=== PATIENT | female | born 1980 | race Caucasian/White ===

== ENCOUNTER 2016-12-07 09:11 | Emergency (ER) | payer MEDICAID ==
[2016-12-07 09:21] VITALS: BP 119/82
--- NOTE | 2016-12-07 10:07 | ER Document Report ---
HPI - HPI Patient complains to provider of: left ear pain Onset: Other - 4 days Onset/Duration: Gradual Quality of pain: Achy Pain Level: 4 Context: Patient complains of left ear pain for the past 4 days with a decrease in hearing today. Patient denies any fever or drainage from the ear. Associated Symptoms: Earache Exacerbated by: Denies Relieved by: Denies Similar symptoms previously: Yes Recently seen / treated by doctor: No - ROS ROS below otherwise negative: Yes Systems Reviewed and Negative: Yes All other systems reviewed and negative - CONSTITUTIONAL Constitutional: DENIES: Fever, Chills - EENT EENT: REPORTS: Ear Pain - RESPIRATORY Respiratory: DENIES: Coughing - GASTROINTESTINAL Gastrointestinal: DENIES: Nausea, Patient vomiting - REPRODUCTIVE Reproductive: DENIES: : - DERM Skin Color: Normal Skin Problems: None Past Medical History - General Information source: Patient - Social History Smoking Status: Current Every Day Smoker Chew tobacco use (# tins/day): No Frequency of alcohol use: None Drug Abuse: None Occupation: none Family History: None Patient has suicidal ideation: No Patient has homicidal ideation: No - Past Medical History Cardiac Medical History: Reports: Hx Hypercholesterolemia Renal/ Medical History: Denies: Hx Peritoneal Dialysis Musculoskeltal Medical History: Reports Other - Chronic back pain Past Surgical History: Reports: Hx Breast Surgery - lumpectomy, Hx Section, Hx Cholecystectomy, Hx Hysterectomy, Hx Orthopedic Surgery, Hx Tonsillectomy - Immunizations Hx Diphtheria, Pertussis, Tetanus Vaccination: Yes Vertical Provider Document - CONSTITUTIONAL Agree With Documented VS: Yes Exam Limitations: No Limitations General Appearance: WD/WN, No Apparent Distress - INFECTION CONTROL TRAVEL OUTSIDE OF THE [place] IN LAST 30 DAYS: No - HEENT HEENT: Atraumatic, Normocephalic. negative: Pharyngeal Exudate, Pharyngeal Tenderness, Pharyngeal Erythema, Tympanic Membrane Red, Tympanic Membrane Bulging Notes: Swelling to left external auditory canal. Pain with movement of left helix. No mastoid tenderness or swelling - NECK Neck: Normal Inspection, Supple. negative: Lymphadenopathy-Left, Lymphadenopathy-Right - RESPIRATORY Respiratory: Breath Sounds Normal, No Respiratory Distress O2 Sat by Pulse Oximetry: 99 - CARDIOVASCULAR Cardiovascular: Regular Rate, Regular Rhythm - BACK Back: Normal Inspection - MUSCULOSKELETAL/EXTREMETIES Musculoskeletal/Extremeties: MAEW - NEURO Level of Consciousness: Awake, Alert, Appropriate Motor/Sensory: No Motor Deficit - DERM Integumentary: Warm, Dry, No Rash Course - Vital Signs Vital signs: Temp Pulse Resp BP Pulse Ox 98.1 F 79 16 119/82 99 12/07/16 09:20 12/07/16 09:20 12/07/16 09:20 12/07/16 09:20 12/07/16 09:20 Discharge - Discharge Clinical Impression: Otitis externa Qualifiers: Otitis externa type: unspecified type Laterality: left Chronicity: acute Qualified Code(s): H60.502 - Unspecified acute noninfective otitis externa, left ear Condition: Stable Disposition: HOME, SELF-CARE Instructions: Oral Narcotic Medication ([facility]), Use of Ear Drops ([facility]), Otitis Externa ([facility]) Additional Instructions: Return immediately for any new or worsening symptoms Followup with your primary care provider, call tomorrow to make a followup appointment Follow up with ears nose and throat specialist or any continued problems Prescriptions: Ciprofloxacin HCl/Dexameth [Ciprodex Otic Suspension 7.5 Ml Drp Bottle] 4 drop LFT_EAR BID #1 bottle Hydrocodone/Acetaminophen [Sidney 5-325 Tablet] 1 each PO Q4 PRN #15 tablet PRN Reason: Referrals: ENT [Provider Group] - Follow up as needed
== END 2016-12-07 10:10 | disposition home or self-care (01) ==
LOC: ER 09:11
DX: H60.502 Unspecified acute noninfective otitis externa, left ear (principal); F17.200 Nicotine dependence, unspecified, uncomplicated; E78.00 Pure hypercholesterolemia, unspecified; Z90.710 Acquired absence of both cervix and uterus
CPT/HCPCS: 99282

== ENCOUNTER 2017-05-25 11:05 | Emergency (ER) | payer MEDICAID ==
[2017-05-25 11:14] VITALS: BP 114/72
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
--- NOTE | 2017-05-25 13:18 | RADIOLOGY REPORT (SQ) ---
EXAM DESCRIPTION: L SPINE WHOLE COMPLETED DATE/TIME: 05/25/2017 12:58 pm REASON FOR STUDY: Low back pain, left posterior hip pain COMPARISON: None. NUMBER OF VIEWS: Five views including obliques. TECHNIQUE: AP, lateral, oblique, and sacral radiographic images acquired of the lumbar spine. LIMITATIONS: None. FINDINGS: MINERALIZATION: Normal. SEGMENTATION: Normal. No transitional anatomy. ALIGNMENT: Normal. VERTEBRAE: Maintained height. No fracture or worrisome bone lesion. DISCS: Disc space narrowing L5-S1. POSTERIOR ELEMENTS: Pedicles and facets are intact. No pars defect or posterior arch defects. HARDWARE: None in the spine. PARASPINAL SOFT TISSUES: Normal. PELVIS: Intact as visualized. No fractures or worrisome bone lesions. SI joints intact. OTHER: No other significant finding. IMPRESSION: Disc space narrowing L5-S1. TECHNICAL DOCUMENTATION: JOB ID: [id number] [employer]- All Rights Reserved
--- NOTE | 2017-05-25 13:20 | RADIOLOGY REPORT (SQ) ---
EXAM DESCRIPTION: HIP LEFT AP/LATERAL COMPLETED DATE/TIME: 05/25/2017 12:59 pm REASON FOR STUDY: Low back pain, left posterior hip pain COMPARISON: None. NUMBER OF VIEWS: Two views. TECHNIQUE: AP pelvis and additional frog-leg view of the left hip. LIMITATIONS: None. FINDINGS: MINERALIZATION: Normal. LEFT HIP: No acute fracture. Osteophytes. RIGHT HIP: Small osteophytes. No acute fracture. No joint space narrowing. PUBIS AND ISCHIUM: No fracture. PELVIS: No fracture. SACRUM: No fracture or dislocation. No worrisome bone lesions. LOWER LUMBAR SPINE: No fracture or dislocation. No worrisome bone lesions. No significant disc disea se. SOFT TISSUES: No findings. OTHER: No other significant finding. IMPRESSION: Mild degenerative changes of the left hip. Moderate degenerative changes of the right h ip. TECHNICAL DOCUMENTATION: JOB ID: [id number] [employer]- All Rights Reserved
[2017-05-25] MEDS ORDERED: KETOROLAC TROMETHAMINE INJ/PF 30 MG/1 ML SDV IM ONE (13:40)
== END 2017-05-25 13:50 | disposition home or self-care (01) ==
LOC: ER 11:05
DX: T14.8 Other injury of unspecified body region (principal); M54.5 Low back pain; M25.552 Pain in left hip; W17.89XA Other fall from one level to another, initial encounter; Y93.18 Activity, surfing, windsurfing and boogie boarding; Z87.81 Personal history of (healed) traumatic fracture; F17.200 Nicotine dependence, unspecified, uncomplicated
CPT/HCPCS: 72110; 99283

== ENCOUNTER 2017-08-18 12:45 | Emergency (ER) | payer MEDICAID ==
--- NOTE | 2017-08-18 14:07 | ER Document Report ---
HPI - HPI Patient complains to provider of: dental pain Onset: Yesterday Onset/Duration: Gradual Quality of pain: Achy Pain Level: 5 Context: Patient presents complaining of dental pain to left lower jaw. Patient states that pain radiates to left lateral side of neck and she has tender swollen lymph nodes there. Patient reports fever of 101.7 at home. Associated Symptoms: Fever, Other - Dental pain. denies: Nonproductive cough, Productive cough, Nausea, Vomiting, Rhinnorhea Exacerbated by: Denies Relieved by: Denies Similar symptoms previously: Yes Recently seen / treated by doctor: No - ROS ROS below otherwise negative: Yes Systems Reviewed and Negative: Yes All other systems reviewed and negative - CONSTITUTIONAL Constitutional: REPORTS: Fever - EENT EENT: DENIES: Sore Throat Notes: Dental pain - NEURO Neurology: DENIES: Headache - RESPIRATORY Respiratory: DENIES: Coughing - GASTROINTESTINAL Gastrointestinal: DENIES: Nausea, Patient vomiting - REPRODUCTIVE Reproductive: DENIES: : - MUSCULOSKELETAL Musculoskeletal: REPORTS: Neck Pain. DENIES: Back Pain - DERM Skin Color: Normal Skin Problems: None Past Medical History - General Information source: Patient - Social History Smoking Status: Current Every Day Smoker Frequency of alcohol use: None Drug Abuse: None Occupation: None Lives with: Alone Family History: None - Past Medical History Cardiac Medical History: Reports: Hx Hypercholesterolemia Renal/ Medical History: Denies: Hx Peritoneal Dialysis Past Surgical History: Reports: Hx Breast Surgery - lumpectomy, Hx Section, Hx Cholecystectomy, Hx Hysterectomy, Hx Orthopedic Surgery, Hx Tonsillectomy - Immunizations Hx Diphtheria, Pertussis, Tetanus Vaccination: Yes Vertical Provider Document - CONSTITUTIONAL Agree With Documented VS: Yes Exam Limitations: No Limitations General Appearance: WD/WN, No Apparent Distress - INFECTION CONTROL TRAVEL OUTSIDE OF THE [place] IN LAST 30 DAYS: No - HEENT HEENT: Atraumatic, Normocephalic. negative: Pharyngeal Exudate, Pharyngeal Tenderness, Pharyngeal Erythema, Tympanic Membrane Red, Tympanic Membrane Bulging Mouth Diagram: 1 - dental pain - NECK Neck: Lymphadenopathy-Left, Lymphadenopathy-Right - RESPIRATORY Respiratory: Breath Sounds Normal, No Respiratory Distress O2 Sat by Pulse Oximetry: 100 - CARDIOVASCULAR Cardiovascular: Regular Rate, Regular Rhythm, No Murmur - MUSCULOSKELETAL/EXTREMETIES Musculoskeletal/Extremeties: MAEW - NEURO Level of Consciousness: Awake, Alert, Appropriate Motor/Sensory: No Motor Deficit - DERM Integumentary: Warm, Dry, No Rash Course - Vital Signs Vital signs: Temp Pulse Resp BP Pulse Ox 98.4 F 81 18 120/78 100 08/18/17 12:59 08/18/17 12:59 08/18/17 12:59 08/18/17 12:59 08/18/17 12:59 Discharge - Discharge Clinical Impression: Toothache Condition: Stable Disposition: HOME, SELF-CARE Instructions: Clindamycin ([facility]), Toothache ([facility]) Additional Instructions: Return immediately for any new or worsening symptoms Followup with your dental care provider, call tomorrow to make a followup appointment Prescriptions: Clindamycin HCl [Cleocin 300 mg Capsule] 300 mg PO TID #21 capsule Naproxen [Naprosyn 250 Nmg Tablet] 1 tab PO BID #14 tablet Referrals: [facility] [Provider Group] - Follow up as needed
[2017-08-18 14:12] VITALS: BP 120/75
== END 2017-08-18 14:12 | disposition home or self-care (01) ==
LOC: ER 12:45
DX: K08.89 Other specified disorders of teeth and supporting structures (principal); R50.9 Fever, unspecified; F17.200 Nicotine dependence, unspecified, uncomplicated
CPT/HCPCS: 99282

== ENCOUNTER 2017-08-19 20:37 | Emergency (ER) | payer MEDICAID ==
[2017-08-19] MEDS ORDERED: DIPH/PERTUSS(ACELL)/TETANUS VAC/PF 0.5 ML SYR (>=10YO) IM ONE (23:03)
[2017-08-19] MEDS ORDERED: LIDOCAINE 1% INJ-PF (10 MG/ML) 30 ML SDV INJ ONE (23:03)
--- NOTE | 2017-08-20 00:21 | ER Document Report ---
HPI - HPI Patient complains to provider of: Toe laceration Onset: This evening Onset/Duration: Sudden Quality of pain: Sharp Pain Level: 5 Context: Patient states that she stepped on a curtain ivon cutting her left fourth toe. Patient complains of pain with ambulation. Associated Symptoms: Other - Toe laceration Exacerbated by: Standing, Movement, Walking Relieved by: Denies Similar symptoms previously: No Recently seen / treated by doctor: Yes - ROS ROS below otherwise negative: Yes Systems Reviewed and Negative: Yes All other systems reviewed and negative - CONSTITUTIONAL Constitutional: DENIES: Fever - REPRODUCTIVE Reproductive: DENIES: : - MUSCULOSKELETAL Musculoskeletal: REPORTS: Extremity pain - DERM Skin Color: Normal Skin Problems: Laceration Past Medical History - General Information source: Patient - Social History Smoking Status: Current Every Day Smoker Occupation: None Lives with: Alone Family History: None Patient has suicidal ideation: No Patient has homicidal ideation: No - Past Medical History Cardiac Medical History: Reports: Hx Hypercholesterolemia Renal/ Medical History: Denies: Hx Peritoneal Dialysis Past Surgical History: Reports: Hx Breast Surgery - lumpectomy, Hx Section, Hx Cholecystectomy, Hx Hysterectomy, Hx Orthopedic Surgery, Hx Tonsillectomy - Immunizations Hx Diphtheria, Pertussis, Tetanus Vaccination: Yes Vertical Provider Document - CONSTITUTIONAL Agree With Documented VS: Yes Exam Limitations: No Limitations General Appearance: WD/WN, No Apparent Distress - INFECTION CONTROL TRAVEL OUTSIDE OF THE [place] IN LAST 30 DAYS: No - HEENT HEENT: Atraumatic, Normocephalic - NECK Neck: Normal Inspection - RESPIRATORY Respiratory: Breath Sounds Normal, No Respiratory Distress O2 Sat by Pulse Oximetry: 100 - CARDIOVASCULAR Cardiovascular: Regular Rate, Regular Rhythm Pulses: Normal: Dorsalis pedis - MUSCULOSKELETAL/EXTREMETIES Musculoskeletal/Extremeties: MAEW, FROM, Tender - left 4th toe - NEURO Level of Consciousness: Awake, Alert, Appropriate Motor/Sensory: No Motor Deficit - DERM Integumentary: Warm, Dry, Laceration - irreg lac to plantar surface of left 4th toe Course - Vital Signs Vital signs: Temp Pulse Resp BP Pulse Ox 98.4 F 99 18 123/80 100 08/19/17 20:47 08/19/17 20:47 08/19/17 20:47 08/19/17 20:47 08/19/17 20:47 Procedures - Immobilization Left Toe 4th digit Pre-Proc Neuro Vasc Exam: Normal Immobilizer type: Post-op shoe Performed by: PCT Post-Proc Neuro Vasc Exam: Normal Alignment checked and good: Yes - Laceration/Wound Repair Left Toe 4th digit Wound length (cm): 1.5 Wound's Depth, Shape: Irregular Anesthetic type: 1% Lidocaine Wound explored: Clean Wound Repaired With: Sutures Suture Size/Type: 5:0, Nylon Number of Sutures: 3 Post-procedure wound care: Sterile dressing applied, Splint applied Post-procedure NV exam normal: Yes Complications: No Discharge - Discharge Clinical Impression: Toe laceration Qualifiers: Encounter type: initial encounter Toe: lesser toe Damage to nail status: without damage Foreign body presence: without foreign body Laterality: left Qualified Code(s): S91.115A - Laceration without foreign body of left lesser toe (s) without damage to nail, initial encounter Condition: Stable Disposition: HOME, SELF-CARE Additional Instructions: Return immediately for any new or worsening symptoms Followup with your primary care provider, call tomorrow to make a followup appointment Suture removal in 8-9 days Keep wound covered as it continues to heal LACERATION CARE: Your laceration has been sutured to keep the skin edges aligned during healing. The time of suture removal depends on the nature and location of your cut. Please follow the care instructions the doctor has outlined for you and return for further care, according to the schedule you've been given. Keep the wound and dressing clean. Unless you were told otherwise, you may shower daily, blotting the wound dry with a clean, unused towel. At other times, If the dressing gets wet or blood soaked, remove it and blot the wound dry, then reapply a new dressing. Unless you were instructed otherwise, dressings should be changed at least daily. If any signs of infection occur (swelling, redness, drainage, increasing tenderness, red streaks, tender lumps in the armpit or groin above the laceration, or fever), see the doctor immediately. SOAP CLEANSING: Gently wash the wound daily using a mild soap (like Ivory, Phisoderm, Neutrogena). Use warm water, rubbing gently until all debris, ooze, and crusting have been washed from the wound. Allow to dry briefly (about 10 minutes) after cleaning. Repeat this cleansing at least three times a day for the first two days and then once or twice a day. TETANUS IMMUNIZATION GIVEN: You have been given an immunization against tetanus. Please record this in your records. In general, a booster is needed only once every 10 years. The tetanus shot protects against tetanus or "lockjaw," which is a complication of certain wound infections (the tetanus shot cannot protect against the actual infection). The immunization site may become warm and red due to local reaction. If this occurs, apply warm compresses and take aspirin or ibuprofen to reduce inflammation and discomfort. Return for evaluation if the reaction becomes severe. FOLLOW-UP CARE: Your sutures should be removed in _8-9____ days. To facilitate a timely removal of your sutures, you may return to the Emergency Department at [facility]. You do not need to call for an appointment, but the best time to come in for suture removal is early in the morning. If you have been referred to another physician for follow-up care, call that physicians office for an appointment as you were instructed. If you experience a significant change in your laceration, or if you are concerned there may be an infection (swelling, redness, drainage, increasing tenderness, red streaks, tender lumps in the armpit or groin above the laceration, or fever) , return to the Emergency Department immediately re-evaluation. Referrals: [facility] [Provider Group] - Follow up as needed
[2017-08-20 03:15] VITALS: BP 121/82
== END 2017-08-20 00:32 | disposition home or self-care (01) ==
LOC: ER 20:37
PROC: 0HQNXZZ Repair Left Foot Skin, External Approach (ICD-10-PCS; principal; 2017-08-19)
DX: S91.115A Laceration without foreign body of left lesser toe(s) without damage to nail, initial encounter (principal); W22.09XA Striking against other stationary object, initial encounter; F17.200 Nicotine dependence, unspecified, uncomplicated; E78.00 Pure hypercholesterolemia, unspecified; Z90.49 Acquired absence of other specified parts of digestive tract; Z90.710 Acquired absence of both cervix and uterus; Z23 Encounter for immunization
CPT/HCPCS: 99282; 90715; 12001; J3490

== ENCOUNTER 2017-08-20 13:26 | Emergency (ER) | payer MEDICAID ==
--- NOTE | 2017-08-20 14:29 | ER Document Report ---
ED Extremity Problem, Lower - General Chief Complaint: Foot Pain Stated Complaint: LEFT FOOT PAIN Time Seen by Provider: 08/20/17 14:06 Notes: The patient is a 36-year-old female who presents with left foot pain that is continuing after she sustained a laceration that was repaired yesterday. She took Naprosyn without much relief of her throbbing sensation. She is wearing a walking boot. Denies redness, fevers, discharge of the wound, numbness, tingling or any other injuries. TRAVEL OUTSIDE OF THE [place] IN LAST 30 DAYS: No - Related Data Allergies/Adverse Reactions: azithromycin [From Zithromax] Allergy (Verified 08/20/17 13:30) bee pollen Allergy (Verified 08/20/17 13:30) cephalexin [From Keflex] Allergy (Verified 08/20/17 13:30) Penicillins Allergy (Verified 08/20/17 13:30) tramadol [From Ultram] Allergy (Verified 08/20/17 13:30) Past Medical History - General Information source: Patient - Social History Smoking Status: Current Every Day Smoker Frequency of alcohol use: None Drug Abuse: Marijuana Family History: None - Past Medical History Cardiac Medical History: Reports: Hx Hypercholesterolemia Renal/ Medical History: Denies: Hx Peritoneal Dialysis Past Surgical History: Reports: Hx Breast Surgery - lumpectomy, Hx Section, Hx Cholecystectomy, Hx Hysterectomy, Hx Orthopedic Surgery, Hx Tonsillectomy - Immunizations Hx Diphtheria, Pertussis, Tetanus Vaccination: Yes Review of Systems - Review of Systems Notes: REVIEW OF SYSTEMS: CONSTITUTIONAL: -fevers, -chills EENT: -eye pain, -difficulty swallowing, -nasal congestion CARDIOVASCULAR:-chest pain, -syncope. RESPIRATORY: -cough, -SOB GASTROINTESTINAL: -abdominal pain, - nausea, -vomiting, -diarrhea GENITOURINARY: -dysuria, -hematuria MUSCULOSKELETAL: +left foot pain, -back pain, -neck pain SKIN: +lac on left foot HEMATOLOGIC: -easy bruising or bleeding. LYMPHATIC: -swollen, enlarged glands. NEUROLOGICAL: -altered mental status or loss of consciousness, -headache, - neurologic symptoms PSYCHIATRIC: -anxiety, -depression. ALL OTHER SYSTEMS REVIEWED AND NEGATIVE. Physical Exam - Vital signs Vitals: Temp Pulse Resp BP Pulse Ox 98.6 F 94 18 120/92 H 99 08/20/17 13:08/20/17 13:08/20/17 13:08/20/17 13:08/20/17 13:31 - Notes Notes: PHYSICAL EXAMINATION: GENERAL: Well-appearing, well-nourished and in no acute distress. HEAD: Atraumatic, normocephalic. EYES: Pupils equal round and reactive to light, extraocular movements intact, sclera anicteric, conjunctiva are normal. ENT: nares patent, oropharynx clear without exudates. Moist mucous membranes. NECK: Normal range of motion, supple without lymphadenopathy LUNGS: Breath sounds clear to auscultation bilaterally and equal. No wheezes rales or rhonchi. HEART: Regular rate and rhythm without murmurs ABDOMEN: Soft, nontender, normoactive bowel sounds. No guarding, no rebound. No masses appreciated. EXTREMITIES: Mild tenderness of left 5th toe NEUROLOGICAL: Cranial nerves grossly intact. Normal speech, normal gait. Normal sensory and motor exams. PSYCH: Normal mood, normal affect. SKIN: Laceration between left 4th and 5th toes without redness or drainage Course - Re-evaluation Re-evalutation: X-ray obtained to assess for any signs of fractures, but no fractures are evident. Her laceration appears to be well healing without any signs of infection. Instructed her that opioids are not appropriate for her injury due to the dangerous side effects. Instructed her to continue Naprosyn and add Tylenol. Given return precautions and she understands. - Vital Signs Vital signs: Temp Pulse Resp BP Pulse Ox 98.6 F 94 18 120/92 H 99 08/20/17 13:08/20/17 13:08/20/17 13:08/20/17 13:08/20/17 13:31 - Diagnostic Test Radiology reviewed: Image reviewed, Reports reviewed Radiology results interpreted by me: Left foot x-ray: NAD Discharge - Discharge Clinical Impression: Encounter for wound re-check, Inadequate pain control Foot contusion Qualifiers: Encounter type: initial encounter Laterality: left Qualified Code(s): S90.32XA - Contusion of left foot, initial encounter Condition: Stable Disposition: HOME, SELF-CARE Additional Instructions: Continue the Naprosyn and take 1000 mg Tylenol every 6 hours to help with the pain. Prescriptions: Acetaminophen [Tylenol Extra Strength] 1,000 mg PO Q6H PRN #20 tablet PRN Reason:
--- NOTE | 2017-08-20 14:51 | RADIOLOGY REPORT (SQ) ---
EXAM DESCRIPTION: FOOT LEFT COMPLETE COMPLETED DATE/TIME: 08/20/2017 2:37 pm REASON FOR STUDY: left foot injury COMPARISON: None. NUMBER OF VIEWS: Three views. TECHNIQUE: AP, lateral and oblique radiographic images acquired of the left foot. LIMITATIONS: None. FINDINGS: MINERALIZATION: Normal. BONES: No acute fracture or dislocation. No worrisome bone lesions. JOINTS: No effusions. SOFT TISSUES: No soft tissue swelling. No foreign body. OTHER: No other significant finding. IMPRESSION: NEGATIVE STUDY OF THE LEFT FOOT. NO RADIOGRAPHIC EVIDENCE OF ACUTE INJURY. TECHNICAL DOCUMENTATION: JOB ID: [id number] [employer]- All Rights Reserved
[2017-08-20] MEDS ORDERED: ACETAMINOPHEN 325 MG TABLET PO ONE (14:56)
[2017-08-20] MEDS ORDERED: KETOROLAC TROMETHAMINE 60 MG/2 ML SDV IM ONE (15:16)
[2017-08-20 15:46] VITALS: BP 111/83
== END 2017-08-20 15:30 | disposition home or self-care (01) ==
LOC: ER 13:26
DX: S91.312D Laceration without foreign body, left foot, subsequent encounter (principal); W22.8XXD Striking against or struck by other objects, subsequent encounter; M79.672 Pain in left foot; F17.200 Nicotine dependence, unspecified, uncomplicated; Z76.5 Malingerer [conscious simulation]; Z88.1 Allergy status to other antibiotic agents; Z91.030 Bee allergy status; Z88.0 Allergy status to penicillin; Z88.5 Allergy status to narcotic agent
CPT/HCPCS: 99283; 96372; 73630; J1885

== ENCOUNTER → 2018-04-21 | Outpatient (CLI) | payer MEDICAID ==
--- NOTE | 2018-04-21 15:36 | WOMENS IMAGING REPORT ---
EXAM DESCRIPTION: BILAT SCREENING MAMMO W/CAD COMPLETED DATE/TIME: 04/21/2018 10:32 am REASON FOR STUDY: SCREENING MAMMO Z12.31 ENCNTR SCREEN MAMMOGRAM FOR MALIGNANT NEOPLASM OF DM COMPARISON: None available. TECHNIQUE: Standard craniocaudal and mediolateral oblique views of each breast recorded using digita l acquisition. LIMITATIONS: None. FINDINGS: No masses, calcifications or architectural distortion. No areas of suspicion. Read with the assistance of CAD. .[facility] - R2 Cenova Version 1.3 .[facility] - R2 Cenova Version 1.3 .[facility] - R2 Cenova Version 2.4 .[facility] [place] R2 Cenova Version 2.4 .[facility] - R2 Duplicator Punch Operator Version 9.2 IMPRESSION: NORMAL MAMMOGRAM. BIRADS 1. BREAST DENSITY: b. There are scattered areas of fibroglandular density. BIRAD: 1 NEGATIVE RECOMMENDATION: ROUTINE SCREENING COMMENT: The patient has been notified of the results by letter per MQSA requirements. Additional no tification policies are in place for contacting patient with suspicious or incomplete findings. Quality ID #[id number]: The [employer] recommends an annual screening mammogram for women aged 40 years or over. This facility utilizes a reminder system to ensure that all patients receive reminder letters, and/or direct phone calls for appointments. This includes reminders for routine scr eening mammograms, diagnostic mammograms, or other Breast Imaging Interventions when appropriate. Th is patient will be placed in the appropriate reminder system. The [employer] (ACR) has developed recommendations for screening MRI of the breast s in certain patient populations, to be used in conjunction with mammography. Breast MRI surveillanc e may be appropriate for women with more than 20% lifetime risk of developing breast cancer as deter mined by genetic testing, significant family history of the disease, or history of mantle radiation f or Hodgkins Disease. ACR Practice Guidelines 2008. TECHNICAL DOCUMENTATION: FINDING NUMBER: (1) ASSESSMENT: (1) JOB ID: [id number] [email or web address]- All Rights Reserved Reading location - IP/workstation name: TANK MAKER [email or web address]
== END ==
LOC: WI 09:51
PROVIDERS: ATTEND Physician Assistant
DX: Z12.31 Encounter for screening mammogram for malignant neoplasm of breast (principal)
CPT/HCPCS: 77067

== ENCOUNTER 2018-07-09 19:26 | Emergency (ER) | payer MEDICAID ==
[2018-07-09 19:47] VITALS: BP 107/83
[2018-07-09] MEDS ORDERED: NORMAL SALINE 1000 ML 1,000 ML IV ONE (19:56)
[2018-07-09] MEDS ORDERED: KETOROLAC TROMETHAMINE INJ/PF 30 MG/1 ML SDV IV ONE (19:56)
[2018-07-09] MEDS ORDERED: ONDANSETRON 4 MG TAB.RAPDIS PO ONE (19:56)
--- NOTE | 2018-07-09 20:00 | ER Document Report ---
ED GI/ - General Chief Complaint: Abdominal Pain Stated Complaint: ABDOMINAL PAIN Time Seen by Provider: 07/09/18 19:56 Notes: 37 years old female presents today with right lower quadrant abdominal pain fever of 102 at home, and nauseous feeling. Denies any dysuria frequency but had some loose stools. On examination-sharp tenderness over the right lower quadrant with rebound tenderness noted. TRAVEL OUTSIDE OF THE [place] IN LAST 30 DAYS: No - Related Data Allergies/Adverse Reactions: azithromycin [From Zithromax] Allergy (Verified 08/20/17 13:30) bee pollen Allergy (Verified 08/20/17 13:30) cephalexin [From Keflex] Allergy (Verified 08/20/17 13:30) Penicillins Allergy (Verified 08/20/17 13:30) tramadol [From Ultram] Allergy (Verified 08/20/17 13:30) Past Medical History - Social History Smoking Status: Current Every Day Smoker Chew tobacco use (# tins/day): No Frequency of alcohol use: None Drug Abuse: None Family History: None Patient has suicidal ideation: No Patient has homicidal ideation: No - Past Medical History Cardiac Medical History: Reports: Hx Hypercholesterolemia Renal/ Medical History: Denies: Hx Peritoneal Dialysis Past Surgical History: Reports: Hx Breast Surgery - lumpectomy, Hx Section, Hx Cholecystectomy, Hx Hysterectomy, Hx Orthopedic Surgery, Hx Tonsillectomy - Immunizations Hx Diphtheria, Pertussis, Tetanus Vaccination: Yes Physical Exam - Vital signs Vitals: Temp Pulse Resp BP Pulse Ox 98.3 F 73 16 107/83 100 07/09/18 19:42 07/09/18 19:42 07/09/18 19:42 07/09/18 19:42 07/09/18 19:42 Course - Vital Signs Vital signs: Temp Pulse Resp BP Pulse Ox 98.3 F 75 16 107/83 100 07/09/18 19:45 07/09/18 19:45 07/09/18 19:45 07/09/18 19:45 07/09/18 19:45 Discharge - Discharge Referrals: TYSHAWN PIERCE PA-C [Primary Care Provider] - Follow up as needed
[2018-07-09 20:38] LABS: APPEARANCE,URINE CLEAR; BILIRUBIN,URINE NEGATIVE (NEGATIVE); COLOR,URINE STRAW; GLUCOSE, URINE NEGATIVE (NEGATIVE); KETONES,URINE NEGATIVE (NEGATIVE); LEUKOCYTE ESTERASE,URINE NEGATIVE (NEGATIVE); NITRITE,URINE NEGATIVE (NEGATIVE); PROTEIN,URINE NEGATIVE (NEGATIVE); URINE SPECIFIC GRAVITY 1.009; UROBILINOGEN,URINE NEGATIVE mg/dL (<2.0)
[2018-07-09 21:04] LABS: ABSOLUTE BASOPHILS # (AUTO) 0.1 10^3/uL (0.0-0.2); ABSOLUTE EOSINOPHILS # (AUTO) 0.3 10^3/uL (0.0-0.6); ABSOLUTE MONOCYTES (AUTO) 0.6 10^3/uL (0.1-1.4); ABSOLUTE NEUT (AUTO) 6.2 10^3/uL (1.7-8.2); BASOPHILS % (AUTO) 0.7 % (0-2); EOSINOPHILS % (AUTO) 2.7 % (0-6); HEMATOCRIT 46.4 % (36.0-47.0); HEMOGLOBIN 15.7 g/dL (12.0-15.5); LYMPHOCYTES % (AUTO) 35.7 % (13-45); MEAN CORPUSCULAR HEMOGLOBIN 31.4 pg (27.0-33.4); MEAN CORPUSCULAR HGB CONC 33.9 g/dL (32.0-36.0); MEAN CORPUSCULAR VOLUME 93 fl (80-97); RED BLOOD COUNT 5.01 10^6/uL (3.72-5.28); RED CELL DISTRIBUTION WIDTH 13.1 % (11.5-14.0); SEGMENTED NEUTROPHILS % (AUTO) 55.9 % (42-78); TOTAL CELLS COUNTED % (AUTO) 100 %; WHITE BLOOD COUNT 11.1 10^3/uL (4.0-10.5)
--- NOTE | 2018-07-09 21:17 | ER Document Report ---
ED GI/ - General Chief Complaint: Abdominal Pain Stated Complaint: ABDOMINAL PAIN Time Seen by Provider: 07/09/18 19:56 Notes: Patient is a 37-year-old female that comes to the emergency department for chief complaint of abdominal pain that started yesterday, she states today it became worse and she noticed it more in the right lower abdomen, this is worse with position changes and movement. She denies nausea or vomiting, she reports fever earlier today 102. She denies dysuria, flank pain, abnormal bowel movements. Past medical history includes total hysterectomy, cholecystectomy. Last meal was around 4 PM. TRAVEL OUTSIDE OF THE [place] IN LAST 30 DAYS: No - Related Data Allergies/Adverse Reactions: azithromycin [From Zithromax] Allergy (Verified 08/20/17 13:30) bee pollen Allergy (Verified 08/20/17 13:30) cephalexin [From Keflex] Allergy (Verified 08/20/17 13:30) Penicillins Allergy (Verified 08/20/17 13:30) tramadol [From Ultram] Allergy (Verified 08/20/17 13:30) Past Medical History - General Information source: Patient - Social History Smoking Status: Current Every Day Smoker Chew tobacco use (# tins/day): No Frequency of alcohol use: None Drug Abuse: None Lives with: Family Family History: None Patient has suicidal ideation: No Patient has homicidal ideation: No - Past Medical History Cardiac Medical History: Reports: Hx Hypercholesterolemia Renal/ Medical History: Denies: Hx Peritoneal Dialysis Past Surgical History: Reports: Hx Breast Surgery - lumpectomy, Hx Section, Hx Cholecystectomy, Hx Hysterectomy, Hx Orthopedic Surgery, Hx Tonsillectomy - Immunizations Hx Diphtheria, Pertussis, Tetanus Vaccination: Yes Review of Systems - Review of Systems Constitutional: See HPI EENT: No symptoms reported Cardiovascular: No symptoms reported Respiratory: No symptoms reported Gastrointestinal: See HPI Genitourinary: No symptoms reported Female Genitourinary: No symptoms reported Musculoskeletal: No symptoms reported Skin: No symptoms reported Hematologic/Lymphatic: No symptoms reported Neurological/Psychological: No symptoms reported Physical Exam - Vital signs Vitals: Temp Pulse Resp BP Pulse Ox 98.3 F 73 16 107/83 100 07/09/18 19:42 07/09/18 19:42 07/09/18 19:42 07/09/18 19:42 07/09/18 19:42 - Notes Notes: GENERAL: Alert, interacts well. No acute distress. HEAD: Normocephalic, atraumatic. EYES: Pupils equal, round, and reactive to light. Extraocular movements intact. ENT: Oral mucosa moist, tongue midline. [Nares patent, no nasal septal hematoma , TM's intact.] NECK: Full range of motion. Supple. Trachea midline. LUNGS: Clear to auscultation bilaterally, no wheezes, rales, or rhonchi. No respiratory distress. HEART: Regular rate and rhythm. No murmur ABDOMEN: Right lower quadrant tenderness with wincing, no rebound tenderness, generalized nonspecific minimal tenderness otherwise. Non-distended. Bowel sounds present in all 4 quadrants. EXTREMITIES: Moves all 4 extremities spontaneously. No edema, normal radial and dorsalis pedis pulses bilaterally. No cyanosis. BACK: no cervical, thoracic, lumbar midline tenderness. No saddle anesthesia, normal distal neurovascular exam. NEUROLOGICAL: Alert and oriented x3. Normal speech. [cranial nerves II through XII grossly intact]. PSYCH: Normal affect, normal mood. SKIN: Warm, dry, normal turgor. No rashes or lesions noted. Course - Re-evaluation Re-evalutation: CBC unremarkable. Chemistry hemolyzed. Physical examination is concerning for possible acute abdomen with right lower quadrant tenderness specifically. Urinalysis unremarkable. On reevaluation patient is stating that she does not want her chemistry performed, she does not want her CAT scan, her son, bring him back, and then continue evaluation. Advised that she could have acute appendicitis or other acute etiology which could be surgical or even life-threatening, patient persists. Because patient has no evidence of sedation, she appears to be completely oriented, patient signed out AGAINST MEDICAL ADVICE but does state that she is going to return. - Vital Signs Vital signs: Temp Pulse Resp BP Pulse Ox 98.3 F 75 16 107/83 100 07/09/18 19:45 07/09/18 19:45 07/09/18 19:45 07/09/18 19:45 07/09/18 19:45 - Laboratory Result Diagrams: 07/09/18 20:43 07/09/18 20:43 Laboratory results interpreted by me: 07/09/18 20:43 WBC 11.1 H Hgb 15.7 H Discharge - Discharge Clinical Impression: Right lower quadrant pain Condition: Stable Disposition: AGAINST MEDICAL ADVICE Additional Instructions: Your physical examination and symptoms are very concerning for acute appendicitis or other acute abdominal abnormality which could lead to becoming very ill and even . Your signing out AGAINST MEDICAL ADVICE at this time. Please return to the emergency department as soon as possible. Referrals: TYSHAWN PIERCE PA-C [Primary Care Provider] - Follow up as needed
[2018-07-09 21:31] LABS: PLATELET COUNT 286 10^3/uL (150-450)
== END 2018-07-09 22:01 | disposition left against medical advice (07) ==
LOC: ER 19:26
DX: R10.31 Right lower quadrant pain (principal); R50.9 Fever, unspecified; F17.200 Nicotine dependence, unspecified, uncomplicated; E78.00 Pure hypercholesterolemia, unspecified; Z88.6 Allergy status to analgesic agent; Z88.0 Allergy status to penicillin; Z88.3 Allergy status to other anti-infective agents; Z90.49 Acquired absence of other specified parts of digestive tract; Z90.710 Acquired absence of both cervix and uterus
CPT/HCPCS: 99284; 96361; 96374; 36415; 85025; 81001; S0119; J1885; J7030

== ENCOUNTER 2018-07-09 22:51 | Emergency (ER) | payer MEDICAID ==
[2018-07-09 22:57] VITALS: BP 123/86
[2018-07-09] MEDS ORDERED: ONDANSETRON HCL INJ/PF 4 MG/2 ML SDV IV ONE (23:44)
[2018-07-09] MEDS ORDERED: MORPHINE SULFATE 10 MG/ML INJ IV ONE (23:44)
[2018-07-09] MEDS ORDERED: NORMAL SALINE 1000 ML 1,000 ML IV PRN (23:45)
[2018-07-10 00:35] LABS: ABSOLUTE BASOPHILS # (AUTO) 0.1 10^3/uL (0.0-0.2); ABSOLUTE EOSINOPHILS # (AUTO) 0.3 10^3/uL (0.0-0.6); ABSOLUTE LYMPHOCYTES (AUTO) 3.5 10^3/uL (0.5-4.7); ABSOLUTE MONOCYTES (AUTO) 0.6 10^3/uL (0.1-1.4); ABSOLUTE NEUT (AUTO) 4.7 10^3/uL (1.7-8.2); EOSINOPHILS % (AUTO) 2.9 % (0-6); HEMATOCRIT 41.3 % (36.0-47.0); HEMOGLOBIN 14.5 g/dL (12.0-15.5); LYMPHOCYTES % (AUTO) 38.3 % (13-45); MEAN CORPUSCULAR HEMOGLOBIN 31.9 pg (27.0-33.4); MEAN CORPUSCULAR HGB CONC 35.2 g/dL (32.0-36.0); MEAN CORPUSCULAR VOLUME 91 fl (80-97); MONOCYTES % (AUTO) 6.8 % (3-13); PLATELET COUNT 302 10^3/uL (150-450); RED BLOOD COUNT 4.56 10^6/uL (3.72-5.28); RED CELL DISTRIBUTION WIDTH 13.2 % (11.5-14.0); TOTAL CELLS COUNTED % (AUTO) 100 %; WHITE BLOOD COUNT 9.3 10^3/uL (4.0-10.5)
[2018-07-10] MEDS ORDERED: HYDROMORPHONE HCL INJ/PF 2 MG/ML AMPULE IV ONE (00:50)
[2018-07-10] MEDS ORDERED: METOCLOPRAMIDE HCL INJ/PF 10 MG/2 ML SDV IV ONE (01:01)
[2018-07-10] MEDS ORDERED: DIAZEPAM INJ 10 MG/2 ML DISP.SYRIN IV ONE (01:12)
[2018-07-10 01:19] LABS: ALANINE AMINOTRANSFERASE 25 U/L (9-52); ALBUMIN 4.4 g/dL (3.5-5.0); ALKALINE PHOSPHATASE 73 U/L (38-126); ANION GAP 14 (5-19); ASPARTATE AMINO TRANSFERASE 22 U/L (14-36); BILIRUBIN,DIRECT 0.3 mg/dL (0.0-0.4); BILIRUBIN,TOTAL 0.3 mg/dL (0.2-1.3); BLOOD UREA NITROGEN 11 mg/dL (7-20); CALCIUM 9.4 mg/dL (8.4-10.2); CARBON DIOXIDE 22 mmol/L (22-30); CHLORIDE 107 mmol/L (98-107); GLUCOSE 90 mg/dL (75-110); LIPASE 113.6 U/L (23-300); POTASSIUM 3.8 mmol/L (3.6-5.0); SODIUM 143.2 mmol/L (137-145); TOTAL PROTEIN 7.3 g/dL (6.3-8.2)
--- NOTE | 2018-07-10 03:22 | RADIOLOGY REPORT (SQ) ---
EXAM DESCRIPTION: CT ABDOMEN PELVIS WITH IV CONTRAST COMPLETED DATE/TME: 07/10/2018 00:00 CLINICAL HISTORY: 37 years Female, RLQ pain Comparison: None. Technique: IV and oral contrast. Coronal and sagittal reformat. This exam was performed according to our departmental dose-optimization program, which includes automated exposure control, adjustment of the mA and/or kV according to patient size and/or use of iterative reconstruction technique. [facility]: Dose Right [facility]: CareDose [facility]: Dose Right [facility]: Teradose 4D [facility]: [employer] LIMITATIONS: None Findings: Mild diffuse bowel wall thickening of the left colon and sigmoid. No ascites. Normal appendix. Inferior thorax, liver, cholecystectomy clips, pancreas, spleen, adrenals, renal system, gastrointestinal tract, pelvic organs, lymphatics, vasculature, and musculoskeleton appear otherwise unremarkable. IMPRESSION: Mild colitis.
[2018-07-10] MEDS ORDERED: ONDANSETRON ODT 4 MG TAB (6 TAB/ER DISP) PO PRN (03:33)
[2018-07-10] MEDS ORDERED: METRONIDAZOLE 500 MG TABLET PO ONE (03:33)
[2018-07-10] MEDS ORDERED: CIPROFLOXACIN HCL 500 MG TABLET PO ONE (03:33)
[2018-07-10] MEDS ORDERED: HYDROCODONE/ACETAMINOPHEN 5-325 MG (6 TAB/ER DISP) PO PRN (03:33)
--- NOTE | 2018-07-10 03:38 | ER Document Report ---
ED GI/ - General Chief Complaint: Abdominal Pain Stated Complaint: ABDOMINAL PAIN Time Seen by Provider: 07/09/18 23:35 Notes: Patient is a 37-year-old female who comes emergency department for chief complaint of lower abdominal pain. I evaluated her earlier this evening, she left AGAINST MEDICAL ADVICE, she is return for additional treatment. Patient reports a fever at home earlier, worsening abdominal pain, she has been able to eat but has had reduced appetite. No vomiting, no flank pain, no chest pain, no vaginal bleeding or discharge. She has had a total hysterectomy. She has had a cholecystectomy. Son is now at bedside. TRAVEL OUTSIDE OF THE [place] IN LAST 30 DAYS: No - Related Data Allergies/Adverse Reactions: azithromycin [From Zithromax] Allergy (Verified 08/20/17 13:30) bee pollen Allergy (Verified 08/20/17 13:30) cephalexin [From Keflex] Allergy (Verified 08/20/17 13:30) Penicillins Allergy (Verified 08/20/17 13:30) tramadol [From Ultram] Allergy (Verified 08/20/17 13:30) Past Medical History - General Information source: Patient - Social History Smoking Status: Current Every Day Smoker Frequency of alcohol use: None Drug Abuse: None Lives with: Family Family History: None Patient has suicidal ideation: No Patient has homicidal ideation: No - Past Medical History Cardiac Medical History: Reports: Hx Hypercholesterolemia Renal/ Medical History: Denies: Hx Peritoneal Dialysis Past Surgical History: Reports: Hx Breast Surgery - lumpectomy, Hx Section, Hx Cholecystectomy, Hx Hysterectomy, Hx Orthopedic Surgery, Hx Tonsillectomy - Immunizations Hx Diphtheria, Pertussis, Tetanus Vaccination: Yes Review of Systems - Review of Systems Constitutional: See HPI EENT: No symptoms reported Cardiovascular: No symptoms reported Respiratory: No symptoms reported Gastrointestinal: See HPI Genitourinary: No symptoms reported Female Genitourinary: No symptoms reported Musculoskeletal: No symptoms reported Skin: No symptoms reported Hematologic/Lymphatic: No symptoms reported Neurological/Psychological: No symptoms reported Physical Exam - Vital signs Vitals: Temp Pulse Resp BP Pulse Ox 97.9 F 77 14 123/86 H 100 07/09/18 22:55 07/09/18 22:55 07/09/18 22:55 07/09/18 22:55 07/09/18 22:55 - Notes Notes: GENERAL: Alert, interacts well. No acute distress. HEAD: Normocephalic, atraumatic. EYES: Pupils equal, round, and reactive to light. Extraocular movements intact. ENT: Oral mucosa moist, tongue midline. NECK: Full range of motion. Supple. Trachea midline. LUNGS: Clear to auscultation bilaterally, no wheezes, rales, or rhonchi. No respiratory distress. HEART: Regular rate and rhythm. No murmur ABDOMEN: General lower abdominal tenderness with wincing, tender on both sides, upper abdominal area mildly tender as well. EXTREMITIES: Moves all 4 extremities spontaneously. No edema, normal radial and dorsalis pedis pulses bilaterally. No cyanosis. BACK: no cervical, thoracic, lumbar midline tenderness. No saddle anesthesia, normal distal neurovascular exam. NEUROLOGICAL: Alert and oriented x3. Normal speech. [cranial nerves II through XII grossly intact]. PSYCH: Normal affect, normal mood. SKIN: Warm, dry, normal turgor. No rashes or lesions noted. Course - Re-evaluation Re-evalutation: Patient had a normal urinalysis within the past few hours. CBC and chemistry are both unremarkable, lipase is unremarkable. Vital signs are unremarkable. Patient does have lower abdominal tenderness although now she also has some upper abdominal tenderness and more generalized tenderness than previously. Not quite specific as before. Decision was made to proceed with CAT scan because of patient's worsening pain and reported fever. Patient vomited after chugging contrast, CAT scan performed with some contrast orally and also with IV contrast. Appendix visualized as normal. Exam is consistent with mild colitis. No abscess or perforation. Suspect this is the source of patient's symptoms. This is consistent with her generalized pain now. Discussed with patient. Patient will be treated with antibiotics, symptom management, discussed recommendations, expectations, close follow-up, and return precautions. Patient tolerated p.o. without any difficulty after initially vomiting contrast. Patient states understanding and agreement with plan. - Vital Signs Vital signs: Temp Pulse Resp BP Pulse Ox 97.9 F 77 14 123/86 H 100 07/09/18 22:55 07/09/18 22:55 07/09/18 22:55 07/09/18 22:55 07/09/18 22:55 - Laboratory Result Diagrams: 07/10/18 00:15 07/10/18 00:54 Discharge - Discharge Clinical Impression: Abdominal pain Qualifiers: Abdominal location: generalized Qualified Code(s): R10.84 - Generalized abdominal pain Condition: Stable Disposition: HOME, SELF-CARE Additional Instructions: Your examination and workup are consistent with colitis, inflammation/infection of the large intestine. Take Cipro and Flagyl antibiotics as prescribed to completion. Start with clear fluids for the first 1-2 days, progress to bland food. Take pain and nausea medication only if needed. Follow-up closely with primary care. Return if you worsen including fever, vomiting, severe abdominal pain, abdominal swelling, bloody stools, or any other concerning or worsening symptoms. Prescriptions: Morphine Sulfate [Morphine Ir 15 Mg Tablet] 15 mg PO Q4HP PRN #10 tablet PRN Reason: Ciprofloxacin HCl [Cipro 500 mg Tablet] 500 mg PO BID #14 tablet Metronidazole [Flagyl 500 mg Tablet] 500 mg PO TID #21 tablet Promethazine HCl [Phenergan 25 mg Tablet] 25 mg PO Q6H PRN #15 tablet PRN Reason: Referrals: TYSHAWN PIERCE PA-C [Primary Care Provider] - Follow up as needed
== END 2018-07-10 04:34 | disposition home or self-care (01) ==
LOC: ER 22:51
DX: R10.84 Generalized abdominal pain (principal); R10.30 Lower abdominal pain, unspecified; F17.200 Nicotine dependence, unspecified, uncomplicated; E78.00 Pure hypercholesterolemia, unspecified; Z88.6 Allergy status to analgesic agent; Z90.49 Acquired absence of other specified parts of digestive tract; Z88.0 Allergy status to penicillin; Z90.710 Acquired absence of both cervix and uterus
CPT/HCPCS: 99284; 96361; 96374; 96375; 36415; 83690; 85025; 80053; 74177; J3490 ×2; J3360; J2270; J1170; J2405; J7030; J2765

== ENCOUNTER 2018-10-03 00:57 | Emergency (ER) | payer MEDICAID ==
[2018-10-03] MEDS ORDERED: DICYCLOMINE HCL INJ 20 MG/2 ML AMPULE IM ONE (01:56)
[2018-10-03] MEDS ORDERED: ONDANSETRON HCL INJ/PF 4 MG/2 ML SDV IV ONE (01:57)
[2018-10-03] MEDS ORDERED: NORMAL SALINE 1000 ML 1,000 ML IV ONE (01:57)
--- NOTE | 2018-10-03 02:00 | ER Document Report ---
ED General - General Chief Complaint: Nausea/Vomiting/Diarrhea Stated Complaint: VOMITING, DIARRHEA, POSSIBLE FEVER Time Seen by Provider: 10/03/18 01:47 Notes: Patient is a 37-year-old female presents with complaints of recurrent diarrhea and some abdominal cramping and pain. Pain is over the lower abdomen a little worse than the right. States she had similar symptoms back in June and they found that she had a bowel infection and place her on antibiotics and she got better. She said her symptoms returned approximately month ago and have been progressively worsening. She had a fever this morning of 101. Some nausea. She tried to call make an appointment with her doctor but she never heard back. She currently does not taking medications. Only previous abdominal surgery is cholecystectomy. [place] She does have 2 dogs and a. She says they have not had any symptoms and their vaccinations are up-to-date. No travel outside the country. No drinking of untreated water. TRAVEL OUTSIDE OF THE [place] IN LAST 30 DAYS: No - Related Data Allergies/Adverse Reactions: azithromycin [From Zithromax] Allergy (Verified 08/20/17 13:30) bee pollen Allergy (Verified 08/20/17 13:30) cephalexin [From Keflex] Allergy (Verified 08/20/17 13:30) Penicillins Allergy (Verified 08/20/17 13:30) tramadol [From Ultram] Allergy (Verified 08/20/17 13:30) Past Medical History - Social History Smoking Status: Unknown if Ever Smoked Frequency of alcohol use: None Drug Abuse: None Family History: None - Past Medical History Cardiac Medical History: Reports: Hx Hypercholesterolemia Renal/ Medical History: Denies: Hx Peritoneal Dialysis Past Surgical History: Reports: Hx Breast Surgery - lumpectomy, Hx Section, Hx Cholecystectomy, Hx Hysterectomy, Hx Orthopedic Surgery, Hx Tonsillectomy - Immunizations Hx Diphtheria, Pertussis, Tetanus Vaccination: Yes Review of Systems - Review of Systems Notes: My Normal Review Basic REVIEW OF SYSTEMS: CONSTITUTIONAL : Fever EENT: Denies eye, ear, throat, or mouth pain or symptoms. Denies nasal or sinus congestion. RESPIRATORY: Denies cough, cold, or chest congestion. Denies shortness of breath, difficulty breathing, or wheezing. GASTROINTESTINAL: Normal pain. Nausea. Diarrhea. GENITOURINARY: Denies difficulty urinating, painful urination, burning, frequency, or blood in urine. MUSCULOSKELETAL: Denies neck or back pain or joint pain or swelling. SKIN: Denies rash or skin lesions. NEUROLOGICAL: Denies altered mental status or loss of consciousness. Denies headache. Denies weakness or paralysis or loss of use of either side. Denies problems with gait or speech. Denies sensory or motor loss. ALL OTHER SYSTEMS REVIEWED AND NEGATIVE. Physical Exam - Vital signs Vitals: Temp Pulse Resp BP Pulse Ox 98.4 F 99 16 137/90 H 98 10/03/18 01:15 10/03/18 01:15 10/03/18 01:15 10/03/18 01:15 10/03/18 01:15 - Notes Notes: General Appearance: Well nourished, alert, cooperative, no acute distress, moderate obvious discomfort. Vitals: reviewed, See vital signs table. Head: no swelling or tenderness to the head Eyes: PERRL, EOMI, Conjuctiva clear Mouth: No decreasd moisture Lungs: No wheezing, No rales, No rhonci, No accessory muscle use, good air exchange bilaterally. Heart: Normal rate, Regular rythm, No murmur, no rub Abdomen: Normal BS, soft, No rigidity, patient has lower abdominal tenderness to palpation. Slightly worse than the right and left side. Upper abdomen is nontender. Extremities: strength 5/5 in all extremities, good pulses in all extremities, no swelling or tenderness in the extremities, no edema. Skin: warm, dry, appropriate color, no rash Neuro: speech clear, oriented x 3, normal affect, responds appropriately to questions. Course - Re-evaluation Re-evalutation: 10/03/18 04:02 Patient is feeling some improvement. She is no longer nauseous or vomiting. Pain is improving. Her white count is normal however she says she had a fever this morning and her previous CT scan had shown that she does have inflammation of the bowel. I therefore suspect she could have recurrent bowel infection. I will place her on Cipro and Flagyl since worked well for her last time. Will refer her to GI physician. I informed her that still possibility of inflammatory bowel disease although I think is less likely being that she has reported fever from this morning. However this recurring for inflammation of the bowel requires her to have further evaluation by GI physician. She said that she did have a colonoscopy a while back in the past due to recurrent constipation issues but that was [place]. She currently looks well. Vital signs are stable. I feel she is safe to be discharged home. I have written a prescription for stool culture. We will give her a stool collection kit to take with her so that she can return with a stool sample. Patient to return to ER if she has recurrent worsening of her symptoms, fevers, vomiting, or she feels unwell. Patient agrees with plan will be discharged home. Dictation of this chart was performed using voice recognition software; therefore, there may be some unintended grammatical errors. - Vital Signs Vital signs: Temp Pulse Resp BP Pulse Ox 98.4 F 99 16 137/90 H 98 10/03/18 01:15 10/03/18 01:15 10/03/18 01:15 10/03/18 01:15 10/03/18 01:15 - Laboratory Result Diagrams: 10/03/18 02:36 10/03/18 02:36 Discharge - Discharge Additional Instructions: Your symptoms and history are consistent with that of a bowel infection being that your previous CT scan a few months ago showed some inflammation in the bowel and also being you had a fever this morning with similar symptoms. It is also possible you could have inflammatory bowel disease, although this is less likely because you had a fever earlier this morning. I feel that it is appropriate for you to follow-up with a GI doctor for further evaluation. I have given you the phone number to Dr. Zhang. He is a local GI physician. Please follow-up with your doctor this coming week as well for close reevaluation. We have given you a stool collection kit. I have written a prescription for a stool culture. Please collect stool and placed in the appropriate specimen cup and bring it to the hospital lab with the prescription so that the test can be ran on it. Please return to the ER immediately if you have intractable vomiting, intractable pain, recurrent fevers, or feel that you are worsening in any way. You have been prescribed an antibiotic that is in the class of antibiotics called fluoroquinolones. On rare occasions these can cause weakness of the tendons. You should therefore avoid any type of heavy lifting or sporting activities while you are on this antibiotic and up to 1 week after stopping it. Prescriptions: Ciprofloxacin HCl [Cipro 500 mg Tablet] 500 mg PO BID #10 tablet Dicyclomine HCl [Bentyl 10 mg Capsule] 1 cap PO TID PRN #12 cap PRN Reason: abdominal pain Metronidazole [Flagyl 500 mg Tablet] 500 mg PO Q6H #28 tablet Promethazine HCl [Phenergan 25 mg Tablet] 1 tab PO Q6H PRN #15 tablet PRN Reason: Forms: Follow-Up Laboratory Testing Referrals: SANDY ZHANG MD [ACTIVE STAFF] - Follow up in 3-5 days TYSHAWN PIERCE PA-C [Primary Care Provider] - Follow up in 3-5 days
[2018-10-03 02:46] LABS: ABSOLUTE BASOPHILS # (AUTO) 0.1 10^3/uL (0.0-0.2); ABSOLUTE EOSINOPHILS # (AUTO) 0.2 10^3/uL (0.0-0.6); ABSOLUTE LYMPHOCYTES (AUTO) 3.3 10^3/uL (0.5-4.7); ABSOLUTE MONOCYTES (AUTO) 0.8 10^3/uL (0.1-1.4); ABSOLUTE NEUT (AUTO) 6.1 10^3/uL (1.7-8.2); BASOPHILS % (AUTO) 1.1 % (0-2); HEMATOCRIT 44.3 % (36.0-47.0); HEMOGLOBIN 15.4 g/dL (12.0-15.5); LYMPHOCYTES % (AUTO) 31.6 % (13-45); MEAN CORPUSCULAR HEMOGLOBIN 31.8 pg (27.0-33.4); MEAN CORPUSCULAR HGB CONC 34.8 g/dL (32.0-36.0); MEAN CORPUSCULAR VOLUME 91 fl (80-97); MONOCYTES % (AUTO) 7.4 % (3-13); PLATELET COUNT 266 10^3/uL (150-450); RED BLOOD COUNT 4.85 10^6/uL (3.72-5.28); RED CELL DISTRIBUTION WIDTH 13.4 % (11.5-14.0); SEGMENTED NEUTROPHILS % (AUTO) 57.9 % (42-78); TOTAL CELLS COUNTED % (AUTO) 100 %; WHITE BLOOD COUNT 10.5 10^3/uL (4.0-10.5)
[2018-10-03 03:08] LABS: ALANINE AMINOTRANSFERASE 22 U/L (9-52); ALBUMIN 4.7 g/dL (3.5-5.0); ALKALINE PHOSPHATASE 92 U/L (38-126); ANION GAP 15 (5-19); ASPARTATE AMINO TRANSFERASE 26 U/L (14-36); BILIRUBIN,DIRECT 0.3 mg/dL (0.0-0.4); BILIRUBIN,TOTAL 0.5 mg/dL (0.2-1.3); BLOOD UREA NITROGEN 11 mg/dL (7-20); CALCIUM 9.6 mg/dL (8.4-10.2); CARBON DIOXIDE 23 mmol/L (22-30); CHLORIDE 105 mmol/L (98-107); GLUCOSE 92 mg/dL (75-110); LIPASE 71.6 U/L (23-300); POTASSIUM 3.6 mmol/L (3.6-5.0); SODIUM 142.6 mmol/L (137-145); TOTAL PROTEIN 8.2 g/dL (6.3-8.2)
[2018-10-03] MEDS ORDERED: METRONIDAZOLE 500 MG TABLET PO ONE (03:55)
[2018-10-03] MEDS ORDERED: CIPROFLOXACIN HCL 500 MG TABLET PO ONE (03:55)
[2018-10-03 04:33] VITALS: BP 101/69
== END 2018-10-03 04:34 | disposition home or self-care (01) ==
LOC: ER 00:57
DX: K52.9 Noninfective gastroenteritis and colitis, unspecified (principal); R10.84 Generalized abdominal pain; R11.2 Nausea with vomiting, unspecified; R50.9 Fever, unspecified; E78.00 Pure hypercholesterolemia, unspecified; Z90.49 Acquired absence of other specified parts of digestive tract; Z90.710 Acquired absence of both cervix and uterus
CPT/HCPCS: 99284; 96372; 96361; 96374; 36415; 83690; 85025; 80053; J3490 ×2; J0500; J2405; J7030

== ENCOUNTER 2019-01-14 16:52 | Emergency (ER) | payer MEDICAID ==
[2019-01-14] MEDS ORDERED: ONDANSETRON HCL INJ/PF 4 MG/2 ML SDV IV ONE (17:16)
[2019-01-14] MEDS ORDERED: NORMAL SALINE 1000 ML 1,000 ML IV ONE (17:16)
--- NOTE | 2019-01-14 17:16 | ER Document Report ---
ED Medical Screen (RME) - General Chief Complaint: Nausea/Vomiting/Diarrhea Stated Complaint: ABDOMINAL PAIN Time Seen by Provider: 01/14/19 17:09 Primary Care Provider: TYSHAWN PIERCE PA-C [Primary Care Provider] - Follow up as needed Notes: Patient is a 38-year-old female that presents to the emergency department for chief complaint of abdominal pain, nausea, vomiting diarrhea. Patient states she is been having nausea, vomiting diarrhea for the last several days, but then developed right lower quadrant abdominal pain more recently, she describes it as severe. ROS: Other than noted above, the 12 point review of systems was reviewed with the patient and were negative, all pertinent findings are included in the HPI. PHYSICAL EXAMINATION: Vital signs reviewed. GENERAL: Patient appears uncomfortable HEAD: Atraumatic, normocephalic. EYES: Pupils equal round extraocular movements intact, conjunctiva are normal. ENT: Nares patent NECK: Normal range of motion CV: Heart regular rate and rhythm LUNGS: No respiratory distress Musculoskeletal: Normal range of motion NEUROLOGICAL: Normal speech PSYCH: Normal mood, normal affect. MDM: Patient seen and examined for rapid initial assessment. Vital signs reviewed. A comprehensive ED assessment and evaluation of the patient, analysis of test results and completion of the medical decision making process will be conducted by additional ED providers. *Note is created using voice recognition software and may contain spelling, syntax or grammatical errors. TRAVEL OUTSIDE OF THE [place] IN LAST 30 DAYS: No - Related Data Allergies/Adverse Reactions: azithromycin [From Zithromax] Allergy (Verified 08/20/17 13:30) bee pollen Allergy (Verified 08/20/17 13:30) cephalexin [From Keflex] Allergy (Verified 08/20/17 13:30) Penicillins Allergy (Verified 08/20/17 13:30) tramadol [From Ultram] Allergy (Verified 08/20/17 13:30) Past Medical History - Past Medical History Cardiac Medical History: Reports: Hx Hypercholesterolemia Renal/ Medical History: Denies: Hx Peritoneal Dialysis Past Surgical History: Reports: Hx Breast Surgery - lumpectomy, Hx Section, Hx Cholecystectomy, Hx Hysterectomy, Hx Orthopedic Surgery, Hx Tonsillectomy - Immunizations Hx Diphtheria, Pertussis, Tetanus Vaccination: Yes Physical Exam - Vital signs Vitals: Temp Pulse Resp BP Pulse Ox 97.7 F 95 14 125/73 100 02/21/19 17:02 01/14/19 17:02 01/14/19 17:02 01/14/19 17:02 01/14/19 17:02 Course - Vital Signs Vital signs: Temp Pulse Resp BP Pulse Ox 97.7 F 95 14 125/73 100 01/14/19 17:02 01/14/19 17:02 01/14/19 17:02 01/14/19 17:02 01/14/19 17:02 Doctor's Discharge - Discharge Referrals: TYSHAWN PIERCE PA-C [Primary Care Provider] - Follow up as needed
[2019-01-14] MEDS ORDERED: KETOROLAC TROMETHAMINE INJ/PF 30 MG/1 ML SDV IV ONE (17:17)
[2019-01-14 18:54] LABS: ABSOLUTE BASOPHILS # (AUTO) 0.1 10^3/uL (0.0-0.2); ABSOLUTE EOSINOPHILS # (AUTO) 0.2 10^3/uL (0.0-0.6); ABSOLUTE LYMPHOCYTES (AUTO) 3.7 10^3/uL (0.5-4.7); ABSOLUTE MONOCYTES (AUTO) 0.7 10^3/uL (0.1-1.4); EOSINOPHILS % (AUTO) 2.3 % (0-6); HEMOGLOBIN 16.1 g/dL (12.0-15.5); LYMPHOCYTES % (AUTO) 33.9 % (13-45); MEAN CORPUSCULAR HEMOGLOBIN 32.4 pg (27.0-33.4); MEAN CORPUSCULAR HGB CONC 34.9 g/dL (32.0-36.0); MEAN CORPUSCULAR VOLUME 93 fl (80-97); MONOCYTES % (AUTO) 6.9 % (3-13); PLATELET COUNT 293 10^3/uL (150-450); RED BLOOD COUNT 4.95 10^6/uL (3.72-5.28); SEGMENTED NEUTROPHILS % (AUTO) 55.9 % (42-78); TOTAL CELLS COUNTED % (AUTO) 100 %; WHITE BLOOD COUNT 10.8 10^3/uL (4.0-10.5)
[2019-01-14 19:03] LABS: APPEARANCE,URINE CLEAR; BILIRUBIN,URINE NEGATIVE (NEGATIVE); COLOR,URINE YELLOW; GLUCOSE, URINE NEGATIVE (NEGATIVE); KETONES,URINE NEGATIVE (NEGATIVE); LEUKOCYTE ESTERASE,URINE NEGATIVE (NEGATIVE); NITRITE,URINE NEGATIVE (NEGATIVE); PROTEIN,URINE NEGATIVE (NEGATIVE); URINE SPECIFIC GRAVITY 1.006; UROBILINOGEN,URINE NEGATIVE mg/dL (<2.0)
[2019-01-14 19:18] LABS: ALANINE AMINOTRANSFERASE 15 U/L (9-52); ALBUMIN 5.2 g/dL (3.5-5.0); ALKALINE PHOSPHATASE 103 U/L (38-126); ANION GAP 10 (5-19); ASPARTATE AMINO TRANSFERASE 30 U/L (14-36); BILIRUBIN,DIRECT 0.3 mg/dL (0.0-0.4); BILIRUBIN,TOTAL 0.5 mg/dL (0.2-1.3); BLOOD UREA NITROGEN 7 mg/dL (7-20); CALCIUM 9.7 mg/dL (8.4-10.2); CARBON DIOXIDE 25 mmol/L (22-30); CHLORIDE 108 mmol/L (98-107); GLUCOSE 91 mg/dL (75-110); LIPASE 74.4 U/L (23-300); POTASSIUM 3.9 mmol/L (3.6-5.0); SODIUM 143.3 mmol/L (137-145); TOTAL PROTEIN 8.6 g/dL (6.3-8.2)
--- NOTE | 2019-01-14 20:14 | ER Document Report ---
ED GI/ - General Chief Complaint: Nausea/Vomiting/Diarrhea Stated Complaint: ABDOMINAL PAIN Time Seen by Provider: 01/14/19 17:09 Primary Care Provider: TYSHAWN PIERCE PA-C [NO LOCAL MD] - Follow up as needed Mode of Arrival: Ambulatory Information source: Patient Notes: Patient presents with a 3-day history of abdominal pain with nausea and vomiting. Patient states that her symptoms are worse after eating. Patient reports subjective fever and chills. Patient denies any urinary symptoms, vaginal bleeding or discharge. TRAVEL OUTSIDE OF THE [place] IN LAST 30 DAYS: No - HPI Patient complains to provider of: Abdominal pain, Vomiting Onset: Other - 3 days Timing/Duration: Waxing and waning Quality of pain: Achy Pain Level: 2 Location: RLQ Vaginal bleeding (Compared to normal period): None Sexual history: Inactive Associated symptoms: Chills, Fever - Subjective, Loss of appetite, Nausea, Vomi ting. denies: Dysuria, Urinary hesitancy, Urinary frequency, Urinary retention, Vaginal discharge Exacerbated by: Food Relieved by: Denies Similar symptoms previously: No Recently seen / treated by doctor: No - Related Data Allergies/Adverse Reactions: azithromycin [From Zithromax] Allergy (Verified 08/20/17 13:30) bee pollen Allergy (Verified 08/20/17 13:30) cephalexin [From Keflex] Allergy (Verified 08/20/17 13:30) Penicillins Allergy (Verified 08/20/17 13:30) tramadol [From Ultram] Allergy (Verified 08/20/17 13:30) Past Medical History - General Information source: Patient - Social History Smoking Status: Current Every Day Smoker Smoking Education Provided: Yes Frequency of alcohol use: None Drug Abuse: None Occupation: None Lives with: Family Family History: None Patient has suicidal ideation: No Patient has homicidal ideation: No - Past Medical History Cardiac Medical History: Reports: Hx Hypercholesterolemia Renal/ Medical History: Reports: Other - Interstitial cystitis. Denies: Hx Peritoneal Dialysis Musculoskeletal Medical History: Reports Other - Back pain Past Surgical History: Reports: Hx Breast Surgery - lumpectomy, Hx Section, Hx Cholecystectomy, Hx Hysterectomy, Hx Orthopedic Surgery, Hx Tonsillectomy - Immunizations Hx Diphtheria, Pertussis, Tetanus Vaccination: Yes Review of Systems - Review of Systems Constitutional: Chills, Fever - Subjective EENT: No symptoms reported Cardiovascular: No symptoms reported Respiratory: No symptoms reported. denies: Cough, Short of breath Gastrointestinal: Abdominal pain, Nausea, Vomiting, Poor appetite. denies: Diarrhea, Poor fluid intake Genitourinary: No symptoms reported. denies: Burning, Dysuria Female Genitourinary: No symptoms reported. denies: , Vaginal discha rge, Vaginal bleeding Musculoskeletal: No symptoms reported. denies: Back pain Skin: No symptoms reported Hematologic/Lymphatic: No symptoms reported Neurological/Psychological: No symptoms reported Physical Exam - Vital signs Vitals: Temp Pulse Resp BP Pulse Ox 97.7 F 95 14 125/73 100 01/14/19 17:02 01/14/19 17:02 01/14/19 17:02 01/14/19 17:02 01/14/19 17:02 - General General appearance: Appears well, Alert In distress: None - HEENT Head: Normocephalic, Atraumatic Eyes: Normal Conjunctiva: Normal Nasal: Normal Mouth/Lips: Normal Mucous membranes: Normal Neck: Normal, Supple. No: Lymphadenopathy - Respiratory Respiratory status: No respiratory distress Chest status: Nontender Breath sounds: Normal. No: Rales, Rhonchi, Stridor, Wheezing Chest palpation: Normal - Cardiovascular Rhythm: Regular Heart sounds: S1 appreciated, S2 appreciated Murmur: No - Abdominal Inspection: Normal Distension: No distension Bowel sounds: Normal Tenderness: Tender - Right lower quadrant, McBurney's point. No: Black's sign Organomegaly: No organomegaly - Back Back: Normal, Nontender. No: CVA tenderness - Extremities General upper extremity: Normal inspection, Nontender, Normal strength General lower extremity: Normal inspection, Nontender, Normal strength - Neurological Neuro grossly intact: Yes Cognition: Normal [place] Coma Scale Eye Opening: Spontaneous [place] Coma Scale Verbal: Oriented [place] Coma Scale Motor: Obeys Commands [place] Coma Scale Total: 15 - Psychological Associated symptoms: Normal affect, Normal mood - Skin Skin Temperature: Warm Skin Moisture: Dry Skin Color: Normal Course - Re-evaluation Re-evalutation: 01/14/19 21:02 Patient's abdomen soft, patient nontoxic in appearance. Vital signs stable. CT scan reviewed, no concern for appendicitis at this time. No concern for colitis obstructive uropathy, or bowel obstruction. Patient states she has been having daily bowel movements. Patient states her last colonoscopy was about 7 years ago. Patient encouraged to follow-up with her primary doctor or GI for recheck. Patient states she has not been sexually active for several years and has had a complete hysterectomy. Patient denies any concerns about any STI. Patient presents with abdominal pain without signs of peritonitis or other life- threatening or serious etiology. Patient appears stable for discharge and has been instructed to return immediately if the symptoms worsen in any way for reevaluation. The patient has been instructed to return if the symptoms worsen or change in any way. 01/14/19 21:06 - Vital Signs Vital signs: Temp Pulse Resp BP Pulse Ox 97.9 F 67 16 119/82 98 01/14/19 21:18 01/14/19 21:18 01/14/19 21:18 01/14/19 21:18 01/14/19 21:18 - Laboratory Result Diagrams: 01/14/19 18:38 01/14/19 18:38 Laboratory results interpreted by me: 01/14/19 01/14/19 01/14/19 18:00 18:38 18:38 WBC 10.8 H Hgb 16.1 H Chloride 108 H Total Protein 8.6 H Albumin 5.2 H Urine Blood SMALL H 01/14/19 20:59 Labs- Entire Visit 01/14/19 01/14/19 01/14/19 18:00 18:38 18:38 WBC 10.8 H RBC 4.95 Hgb 16.1 H Hct 46.0 MCV 93 MCH 32.4 MCHC 34.9 RDW 13.0 Plt Count 293 Seg Neutrophils % 55.9 Lymphocytes % 33.9 Monocytes % 6.9 Eosinophils % 2.3 Basophils % 1.0 Absolute Neutrophils 6.0 Absolute Lymphocytes 3.7 Absolute Monocytes 0.7 Absolute Eosinophils 0.2 Absolute Basophils 0.1 Sodium 143.3 Potassium 3.9 Chloride 108 H Carbon Dioxide 25 Anion Gap 10 BUN 7 Creatinine 0.59 Est GFR ( Amer) > 60 Est GFR (Non-Af Amer) > 60 Glucose 91 Calcium 9.7 Total Bilirubin 0.5 Direct Bilirubin 0.3 Neonat Total Bilirubin Not Reportable Neonat Direct Bilirubin Not Reportable Neonat Indirect Bili Not Reportable AST 30 ALT 15 Alkaline Phosphatase 103 Total Protein 8.6 H Albumin 5.2 H Lipase 74.4 Urine Color YELLOW Urine Appearance CLEAR Urine pH 6.0 Ur Specific [place] 1.006 Urine Protein NEGATIVE Urine Glucose (UA) NEGATIVE Urine Ketones NEGATIVE Urine Blood SMALL H Urine Nitrite NEGATIVE Urine Bilirubin NEGATIVE Urine Urobilinogen NEGATIVE Ur Leukocyte Esterase NEGATIVE Urine WBC (Auto) 1 Urine Bacteria (Auto) TRACE Squamous Epi Cells Auto 3 Urine Mucus (Auto) RARE Urine Ascorbic Acid NEGATIVE - Diagnostic Test Radiology reviewed: Image reviewed, Reports reviewed Discharge - Discharge Clinical Impression: Abdominal pain Qualifiers: Abdominal location: lower abdomen, unspecified Qualified Code(s): R10.30 - Lower abdominal pain, unspecified Constipation Qualifiers: Constipation type: unspecified constipation type Qualified Code(s): K59.00 - Constipation, unspecified Condition: Stable Disposition: HOME, SELF-CARE Instructions: Abdominal Pain ([facility]), Constipation ([facility]), Intravenous (IV) Fluids ([facility]), Observation for Appendicitis ([facility]), Vomiting ([facility]) Additional Instructions: Return immediately for any new or worsening symptoms Followup with your primary care provider, call tomorrow to make a followup appointment Follow-up with the GI doctor for any persistent problems Prescriptions: Dicyclomine HCl [Bentyl 20 mg Tablet] 20 mg PO QID PRN #12 tablet PRN Reason: Ondansetron HCl [Zofran 4 mg Tablet] 1 - 2 tab PO Q6 PRN #12 tablet PRN Reason: Polyethylene Glycol 3350 [Miralax] 17 gm PO DAILY #119 gm Forms: Smoking Cessation Education Referrals: TYSHAWN PIERCE PA-C [NO LOCAL MD] - Follow up as needed
--- NOTE | 2019-01-14 20:18 | RADIOLOGY REPORT (SQ) ---
EXAM DESCRIPTION: CT ABDOMEN PELVIS WITH IV CONTRAST COMPLETED DATE/TME: 01/14/2019 17:17 CLINICAL HISTORY: 38 years, Female, rlq abdominal pain, vomiting This exam was performed according to our departmental dose-optimization program which includes automated exposure control, adjustment of the mA and/or kVp according to patient size and/or use of iterative reconstruction technique where applicable. FINDINGS: Visualized lung bases are within normal limits. Liver, spleen, pancreas, adrenal glands and kidneys are within normal limits. No hydronephrosis or biliary dilatation. Status post cholecystectomy. No dilated loops of bowel to suggest obstruction. Mild amount of stool in the colon. No free fluid or free air. The bladder is unremarkable. Status post hysterectomy. No abdominal or pelvic lymphadenopathy. Abdominal aorta is within normal limits. Appendix is normal. IMPRESSION: No acute disease. No evidence for acute appendicitis.
[2019-01-14 21:19] VITALS: BP 119/82
== END 2019-01-14 21:20 | disposition home or self-care (01) ==
LOC: ER 16:52
DX: K59.00 Constipation, unspecified (principal); R10.30 Lower abdominal pain, unspecified; R11.2 Nausea with vomiting, unspecified; R19.7 Diarrhea, unspecified; R10.9 Unspecified abdominal pain; R50.9 Fever, unspecified; R63.0 Anorexia; F17.200 Nicotine dependence, unspecified, uncomplicated
CPT/HCPCS: 99284; 96361; 96374; 96375; 36415; 83690; 85025; 80053; 81001; 74177; J1885; J2405; J7030

== ENCOUNTER → 2019-01-26 | Outpatient (CLI) | payer MEDICAID ==
[2019-01-26 15:17] LABS: ABSOLUTE BASOPHILS # (AUTO) 0.1 10^3/uL (0.0-0.2); ABSOLUTE EOSINOPHILS # (AUTO) 0.3 10^3/uL (0.0-0.6); ABSOLUTE LYMPHOCYTES (AUTO) 3.5 10^3/uL (0.5-4.7); ABSOLUTE MONOCYTES (AUTO) 0.7 10^3/uL (0.1-1.4); ABSOLUTE NEUT (AUTO) 4.5 10^3/uL (1.7-8.2); BASOPHILS % (AUTO) 0.9 % (0-2); EOSINOPHILS % (AUTO) 3.5 % (0-6); LYMPHOCYTES % (AUTO) 38.2 % (13-45); MEAN CORPUSCULAR HEMOGLOBIN 32.9 pg (27.0-33.4); MEAN CORPUSCULAR HGB CONC 35.7 g/dL (32.0-36.0); MEAN CORPUSCULAR VOLUME 92 fl (80-97); MONOCYTES % (AUTO) 8.2 % (3-13); PLATELET COUNT 270 10^3/uL (150-450); RED BLOOD COUNT 4.56 10^6/uL (3.72-5.28); SEGMENTED NEUTROPHILS % (AUTO) 49.2 % (42-78); TOTAL CELLS COUNTED % (AUTO) 100 %; WHITE BLOOD COUNT 9.1 10^3/uL (4.0-10.5)
[2019-01-26 15:37] LABS: ANION GAP 10 (5-19); BLOOD UREA NITROGEN 14 mg/dL (7-20); CALCIUM 9.6 mg/dL (8.4-10.2); CARBON DIOXIDE 27 mmol/L (22-30); CHLORIDE 105 mmol/L (98-107); GLUCOSE 91 mg/dL (75-110); SODIUM 142.4 mmol/L (137-145)
== END ==
LOC: LAB 14:41
PROVIDERS: ATTEND Internal Medicine Gastroenterology
DX: R19.7 Diarrhea, unspecified (principal)
CPT/HCPCS: 36415; 80048; 85025; 87045; 87205; 87493; 89055

== ENCOUNTER 2019-02-05 10:03 | Emergency (ER) | payer MEDICAID ==
[2019-02-05] MEDS ORDERED: KETOROLAC TROMETHAMINE INJ/PF 30 MG/1 ML SDV IM ONE (11:23)
--- NOTE | 2019-02-05 11:26 | ER Document Report ---
ED Medical Screen (RME) - General Chief Complaint: Back Pain Stated Complaint: BACK PAIN Time Seen by Provider: 02/05/19 11:17 Primary Care Provider: SANDY ALFONSO MD [Primary Care Provider] - Follow up as needed TRAVEL OUTSIDE OF THE [place] IN LAST 30 DAYS: No - HPI Notes: 02/05/19 11:24 Patient is a 38-year-old female that presents to the emergency department for chief complaint of low back pain. Patient has a history of lumbar fracture remotely. She states last Friday she had a colonoscopy performed when she woke up on Friday she was having severe pain in her low back. The pain is midline and is now radiating down the back of both of her legs. She reports she chronically has some pain in her left lower back that radiates into her left buttocks but this pain seems to be different. She has been on Flexeril and steroids as prescribed by an urgent care facility. She did contact the GI physician who performed her colonoscopy and they did not feel it was related to the procedure. She denies any fever, saddle anesthesia, lower extremity weakness, nausea, vomiting, abdominal pain, diarrhea and constipation. She has had a normal bowel movement since her procedure. She last took Motrin last night. ROS: GENERAL: Denies fever of chills CV: Denies chest pain PHYSICAL EXAMINATION: GENERAL: Well-appearing, well-nourished and in no acute distress. HEAD: Atraumatic, normocephalic. EYES: Pupils equal round extraocular movements intact, conjunctiva are normal. ENT: Nares patent NECK: Normal range of motion LUNGS: No respiratory distress Back: Midline lumbar tenderness to palpation, mild bilateral lumbar paraspinal tenderness to palpation Musculoskeletal: Normal range of motion NEUROLOGICAL: Normal speech, normal gait. PSYCH: Normal mood, normal affect. MDM: Patient seen and examined for rapid initial assessment. Vital signs reviewed. A comprehensive ED assessment and evaluation of the patient, analysis of test results and completion of the medical decision making process will be conducted by additional ED providers. - Related Data Allergies/Adverse Reactions: azithromycin [From Zithromax] Allergy (Verified 08/20/17 13:30) bee pollen Allergy (Verified 08/20/17 13:30) cephalexin [From Keflex] Allergy (Verified 08/20/17 13:30) Penicillins Allergy (Verified 08/20/17 13:30) tramadol [From Ultram] Allergy (Verified 08/20/17 13:30) Past Medical History - Social History Chew tobacco use (# tins/day): No Frequency of alcohol use: Occasional Drug Abuse: None - Past Medical History Cardiac Medical History: Reports: Hx Hypercholesterolemia Renal/ Medical History: Denies: Hx Peritoneal Dialysis Past Surgical History: Reports: Hx Breast Surgery - lumpectomy, Hx Section, Hx Cholecystectomy, Hx Hysterectomy, Hx Orthopedic Surgery, Hx Tonsillectomy - Immunizations Hx Diphtheria, Pertussis, Tetanus Vaccination: Yes Physical Exam - Vital signs Vitals: Temp Pulse Resp BP Pulse Ox 97.9 F 107 H 16 118/86 H 100 02/05/19 10:15 02/05/19 10:15 02/05/19 10:15 02/05/19 10:15 02/05/19 10:15 Course - Vital Signs Vital signs: Temp Pulse Resp BP Pulse Ox 97.9 F 107 H 16 118/86 H 100 02/05/19 10:15 02/05/19 10:15 02/05/19 10:15 02/05/19 10:15 02/05/19 10:15 Doctor's Discharge - Discharge Referrals: SANDY ALFONSO MD [Primary Care Provider] - Follow up as needed
--- NOTE | 2019-02-05 12:07 | RADIOLOGY REPORT (SQ) ---
EXAM DESCRIPTION: CT LUMBAR SPINE WITHOUT COMPLETED DATE/TIME: 02/05/2019 11:48 am REASON FOR STUDY: back pain COMPARISON: None. TECHNIQUE: Axial images acquired through the lumbar spine without intravenous contrast. Images revi ewed with lung, soft tissue and bone windows. Reconstructed coronal and sagittal MPR images reviewed . All images stored on PACS. All CT scanners at this facility use dose modulation, iterative reconstruction, and/or weight based d osing when appropriate to reduce radiation dose to as low as reasonably achievable (ALARA). [facility]: Dose Right [facility]: CareDose [facility]: Dose Right [facility]: Teradose 4D [facility]: BuildingOps RADIATION DOSE: mGy. LIMITATIONS: None. FINDINGS: Alignment is normal. No evidence of acute disc herniation or spinal stenosis. Facet arth ropathy L4- 5 and L5-S1. Paraspinal soft tissues are normal. IMPRESSION: Facet arthropathy. No acute findings. TECHNICAL DOCUMENTATION: JOB ID: [id number] Quality ID # [id number]: Final reports with documentation of one or more dose reduction techniques (e.g., Au tomated exposure control, adjustment of the mA and/or kV according to patient size, use of iterative reconstruction technique) 2010 [employer]- All Rights Reserved Reading location - IP/workstation name: [email or web address]
--- NOTE | 2019-02-05 12:43 | ER Document Report ---
ED General Pain - General Chief Complaint: Back Pain Stated Complaint: BACK PAIN Time Seen by Provider: 02/05/19 11:17 Primary Care Provider: SANDY ALFONSO MD [ACTIVE STAFF] - Follow up as needed Mode of Arrival: Ambulatory Information source: Patient Notes: Patient is a 38-year-old female with a history of chronic back pain who presents to the ER today for back pain that started 4 days ago in the lower back, shooting down the back of the left leg. Patient states that this occurred one day after she had a colonoscopy. She denies any abdominal pain. She denies any loss of bladder or bowel function or numbness or tingling anywhere. Patient went to her primary care provider the day it started and was given Toradol injection, prednisone and Flexeril prescriptions, she states that these are not helping. Patient has been taking Tylenol Motrin for pain without relief. She denies any injury. She denies any fevers or chills. TRAVEL OUTSIDE OF THE [place] IN LAST 30 DAYS: No - Related Data Allergies/Adverse Reactions: azithromycin [From Zithromax] Allergy (Verified 08/20/17 13:30) bee pollen Allergy (Verified 08/20/17 13:30) cephalexin [From Keflex] Allergy (Verified 08/20/17 13:30) Penicillins Allergy (Verified 08/20/17 13:30) tramadol [From Ultram] Allergy (Verified 08/20/17 13:30) Past Medical History - General Information source: Patient - Social History Smoking Status: Current Every Day Smoker Chew tobacco use (# tins/day): No Frequency of alcohol use: Occasional Drug Abuse: None Family History: None Patient has suicidal ideation: No Patient has homicidal ideation: No - Past Medical History Cardiac Medical History: Reports: Hx Hypercholesterolemia Renal/ Medical History: Denies: Hx Peritoneal Dialysis Past Surgical History: Reports: Hx Breast Surgery - lumpectomy, Hx Section, Hx Cholecystectomy, Hx Hysterectomy, Hx Orthopedic Surgery, Hx Tonsillectomy - Immunizations Hx Diphtheria, Pertussis, Tetanus Vaccination: Yes Review of Systems - Review of Systems Constitutional: No symptoms reported EENT: No symptoms reported Cardiovascular: No symptoms reported Respiratory: No symptoms reported Gastrointestinal: No symptoms reported Genitourinary: No symptoms reported Female Genitourinary: No symptoms reported Musculoskeletal: See HPI Skin: No symptoms reported Hematologic/Lymphatic: No symptoms reported Neurological/Psychological: No symptoms reported Physical Exam - Vital signs Vitals: Temp Pulse Resp BP Pulse Ox 97.9 F 107 H 16 118/86 H 100 02/05/19 10:15 02/05/19 10:15 02/05/19 10:15 02/05/19 10:15 02/05/19 10:15 - Notes Notes: PHYSICAL EXAMINATION: GENERAL: Well-appearing and in no acute distress. HEAD: Atraumatic, normocephalic. EYES: Pupils equal round and reactive to light, extraocular movements intact, sclera anicteric, conjunctiva are normal. NECK: Normal range of motion, supple without lymphadenopathy LUNGS: CTAB and equal. No wheezes rales or rhonchi. HEART: Regular rate and rhythm without murmurs ABDOMEN: Soft, no tenderness. No guarding, no rebound BACK: Lumbar vertebral tenderness, bilateral SI joint tenderness but with pain, normal ROM on ambulation and extension, rotation of the hips GI/: no CVA tenderness EXTREMITIES: Normal range of motion, no pitting edema. No cyanosis. NEUROLOGICAL: Cranial nerves grossly intact. Normal sensory/motor exams. PSYCH: Normal mood, normal affect. SKIN: Warm, Dry, normal turgor, no rashes or lesions noted Course - Re-evaluation Re-evalutation: 02/05/19 12:42 CT of the lumbar spine negative for any acute pathology, patient has no abdominal pain or tenderness on exam today. Patient advised to stay on her steroid, I will change the muscle relaxer to Robaxin and have her follow-up with her primary care provider. - Vital Signs Vital signs: Temp Pulse Resp BP Pulse Ox 97.9 F 90 17 110/81 99 02/05/19 10:15 02/05/19 13:16 02/05/19 13:16 02/05/19 13:16 02/05/19 13:16 Discharge - Discharge Clinical Impression: Low back pain with sciatica Qualifiers: Chronicity: acute Back pain laterality: bilateral Sciatica laterality: sciatica of left side Qualified Code(s): M54.42 - Lumbago with sciatica, left side Condition: Stable Disposition: HOME, SELF-CARE Instructions: Low Back Pain ([facility]), Oral Narcotic Medication ([facility]), Warm Packs ([facility]) Additional Instructions: Return immediately for any new or worsening symptoms. Follow up with primary care provider, call tomorrow to make followup appointment. Prescriptions: Hydrocodone/Acetaminophen [[place] 5-325 mg Tablet] 1 tab PO Q4 PRN #12 tablet PRN Reason: Methocarbamol [Robaxin 500 mg Tablet] 1,000 mg PO Q6H #40 tablet Referrals: SANDY ALFONSO MD [ACTIVE STAFF] - Follow up as needed
[2019-02-05 13:43] VITALS: BP 110/81
== END 2019-02-05 13:43 | disposition home or self-care (01) ==
LOC: ER 10:03
DX: M54.42 Lumbago with sciatica, left side (principal); M54.9 Dorsalgia, unspecified; G89.29 Other chronic pain; M79.605 Pain in left leg; Z79.899 Other long term (current) drug therapy; Z98.890 Other specified postprocedural states; F17.200 Nicotine dependence, unspecified, uncomplicated
CPT/HCPCS: 99283; 96372; 72131; J1885

== ENCOUNTER 2019-04-10 14:12 | Emergency (ER) | payer MEDICAID ==
--- NOTE | 2019-04-10 15:21 | ER Document Report ---
HPI - HPI Patient complains to provider of: sore throat, cough, fever, chills Time Seen by Provider: 04/10/19 15:09 Onset: Other Severity: Moderate Pain Level: 3 Context: Patient presents emergency department with multiple complaints. Patient reports sore throat for the past 4 days. Denies vomiting diarrhea. Reports she believes she has a fever but has not checked her temperature. Also complains of chills cough. She did not drinking a large fountain drink. Associated Symptoms: Chills, Nonproductive cough, Fever, Sore throat Exacerbated by: Denies Relieved by: Denies Similar symptoms previously: No Recently seen / treated by doctor: No - REPRODUCTIVE Reproductive: DENIES: : Past Medical History - General Information source: Patient Last Menstrual Period: hyst - Social History Smoking Status: Current Every Day Smoker Cigarette use (# per day): Yes Frequency of alcohol use: None Drug Abuse: None Occupation: none Lives with: Family Family History: None Patient has suicidal ideation: No Patient has homicidal ideation: No - Past Medical History Cardiac Medical History: Reports: Hx Hypercholesterolemia Renal/ Medical History: Denies: Hx Peritoneal Dialysis Past Surgical History: Reports: Hx Breast Surgery - lumpectomy, Hx Section, Hx Cholecystectomy, Hx Hysterectomy, Hx Orthopedic Surgery, Hx Tonsillectomy - Immunizations Hx Diphtheria, Pertussis, Tetanus Vaccination: Yes Vertical Provider Document - CONSTITUTIONAL Agree With Documented VS: Yes Exam Limitations: No Limitations General Appearance: WD/WN, No Apparent Distress - INFECTION CONTROL TRAVEL OUTSIDE OF THE [place] IN LAST 30 DAYS: No - HEENT HEENT: Atraumatic, Normocephalic - NECK Neck: Supple - RESPIRATORY Respiratory: No Respiratory Distress - CARDIOVASCULAR Cardiovascular: Regular Rate - GI/ABDOMEN Gastrointestinal: Abdomen Soft, Abdomen Non-Tender - MUSCULOSKELETAL/EXTREMETIES Musculoskeletal/Extremeties: MAEW, FROM - NEURO Level of Consciousness: Awake, Alert, Appropriate Motor/Sensory: No Motor Deficit - DERM Integumentary: Warm, Dry Course - Re-evaluation Re-evalutation: 04/10/19 15:58 Patient was discharged before results of strep. She request to be called if it is positive. Strep negative. Patient was discharged with instructions on sore throat care. Dictation of this chart was performed using voice recognition software; therefore, there may be some unintended grammatical errors. - Vital Signs Vital signs: Temp Pulse Resp BP Pulse Ox 98.4 F 95 18 119/84 98 04/10/19 14:23 04/10/19 14:23 04/10/19 14:23 04/10/19 14:23 04/10/19 14:23 Discharge - Discharge Clinical Impression: Sore throat Condition: Stable Disposition: HOME, SELF-CARE Instructions: Acetaminophen, Sore Throat ([facility]) Additional Instructions: *You have been evaluated for a sore throat You have opted to leave before your strep test returns. You will be contacted if you need any type of antibiotics. Monitor your temperature, take Tylenol as indicated *Warm salt water gargles and throat lozenges for comfort *Do not let anyone drink/eat after you *Good hand washing *Follow-up with a primary care provider in 1 week for recheck *Return to ED for worsening condition change, needs Forms: Smoking Cessation Education
[2019-04-10 15:38] VITALS: BP 124/83
== END 2019-04-10 15:38 | disposition home or self-care (01) ==
LOC: ER 14:12
DX: J02.9 Acute pharyngitis, unspecified (principal); R05 Cough; F17.210 Nicotine dependence, cigarettes, uncomplicated
CPT/HCPCS: 87070; 87880; 99283

== ENCOUNTER 2019-06-02 09:33 | Emergency (ER) | payer MEDICAID ==
[2019-06-02 09:46] VITALS: BP 130/91
--- NOTE | 2019-06-02 09:58 | ER Document Report ---
ED Medical Screen (RME) - General Chief Complaint: Chest Pain Stated Complaint: CHEST PAIN Time Seen by Provider: 06/02/19 09:51 Mode of Arrival: Ambulatory Information source: Patient Notes: Patient is a 38-year-old female presented to the emergency department chief complaint of intermittent left-sided chest pain that radiates into her left shoulder and left arm. She also reports she gets shortness of breath and diaphoretic when the pain comes on. She reports the pain is intermittent, lasting only a few minutes each episode. She denies any nausea or vomiting, denies any cardiac history. Exam: Lung sounds clear and equal bilaterally. Heart sounds S1-S2 present with no ectopy noted. I have greeted and performed a rapid initial assessment of this patient. A comprehensive ED assessment and evaluation of the patient, analysis of test results and completion of the medical decision making process will be conducted by additional ED providers. I have specifically instructed the patient or family members with the patient to immediately return to any nursing staff should anything change in the patient's condition or with their chief complaint. This medical record was dictated with voice recognizing software. There may be grammatical, syntax errors that are unintended. TRAVEL OUTSIDE OF THE [place] IN LAST 30 DAYS: No - Related Data Allergies/Adverse Reactions: azithromycin [From Zithromax] Allergy (Verified 06/02/19 09:35) bee pollen Allergy (Verified 06/02/19 09:35) cephalexin [From Keflex] Allergy (Verified 06/02/19 09:35) Penicillins Allergy (Verified 06/02/19 09:35) tramadol [From Ultram] Allergy (Verified 06/02/19 09:35) Past Medical History - Past Medical History Cardiac Medical History: Reports: Hx Hypercholesterolemia Renal/ Medical History: Denies: Hx Peritoneal Dialysis Past Surgical History: Reports: Hx Breast Surgery - lumpectomy, Hx Section, Hx Cholecystectomy, Hx Hysterectomy, Hx Orthopedic Surgery, Hx Tonsillectomy - Immunizations Hx Diphtheria, Pertussis, Tetanus Vaccination: Yes Physical Exam - Vital signs Vitals: Temp Pulse Resp BP Pulse Ox 98 F 93 20 130/91 H 99 06/02/19 09:45 06/02/19 09:45 06/02/19 09:45 06/02/19 09:45 06/02/19 09:45 Course - Vital Signs Vital signs: Temp Pulse Resp BP Pulse Ox 98 F 93 20 130/91 H 99 06/02/19 09:45 06/02/19 09:45 06/02/19 09:45 06/02/19 09:45 06/02/19 09:45
--- NOTE | 2019-06-02 10:19 | RADIOLOGY REPORT (SQ) ---
EXAM DESCRIPTION: CHEST 2 VIEWS COMPLETED DATE/TIME: 06/02/2019 10:11 am REASON FOR STUDY: Chest Pain COMPARISON: None. EXAM PARAMETERS: NUMBER OF VIEWS: two views TECHNIQUE: Digital Frontal and Lateral radiographic views of the chest acquired. RADIATION DOSE: NA LIMITATIONS: none FINDINGS: LUNGS AND PLEURA: No opacities, masses or pneumothorax. No pleural effusion. MEDIASTINUM AND HILAR STRUCTURES: No masses or contour abnormalities. HEART AND VASCULAR STRUCTURES: Heart normal size. No evidence for failure. BONES: No acute findings. HARDWARE: None in the chest. Cholecystectomy surgical clips. OTHER: No other significant finding. IMPRESSION: NO ACUTE RADIOGRAPHIC FINDING IN THE CHEST. TECHNICAL DOCUMENTATION: JOB ID: [id number] [employer]- All Rights Reserved Reading location - IP/workstation name: [email or web address]
--- NOTE | 2019-06-02 10:31 | EKG REPORT ---
SEVERITY:- NORMAL ECG - SINUS RHYTHM : Confirmed by: Mallory Melendez MD 02-Jun-2019 10:30:21
[2019-06-02 10:33] LABS: ABSOLUTE BASOPHILS # (AUTO) 0.1 10^3/uL (0.0-0.2); ABSOLUTE EOSINOPHILS # (AUTO) 0.2 10^3/uL (0.0-0.6); ABSOLUTE LYMPHOCYTES (AUTO) 2.5 10^3/uL (0.5-4.7); ABSOLUTE MONOCYTES (AUTO) 0.5 10^3/uL (0.1-1.4); ABSOLUTE NEUT (AUTO) 4.7 10^3/uL (1.7-8.2); BASOPHILS % (AUTO) 0.9 % (0-2); EOSINOPHILS % (AUTO) 2.6 % (0-6); HEMATOCRIT 42.9 % (36.0-47.0); HEMOGLOBIN 14.7 g/dL (12.0-15.5); LYMPHOCYTES % (AUTO) 31.5 % (13-45); MEAN CORPUSCULAR HEMOGLOBIN 31.5 pg (27.0-33.4); MEAN CORPUSCULAR HGB CONC 34.4 g/dL (32.0-36.0); MEAN CORPUSCULAR VOLUME 92 fl (80-97); MONOCYTES % (AUTO) 6.2 % (3-13); PLATELET COUNT 253 10^3/uL (150-450); RED BLOOD COUNT 4.68 10^6/uL (3.72-5.28); RED CELL DISTRIBUTION WIDTH 12.8 % (11.5-14.0); SEGMENTED NEUTROPHILS % (AUTO) 58.8 % (42-78); TOTAL CELLS COUNTED % (AUTO) 100 %
[2019-06-02 10:48] LABS: ALANINE AMINOTRANSFERASE 19 U/L (9-52); ALBUMIN 4.4 g/dL (3.5-5.0); ALKALINE PHOSPHATASE 78 U/L (38-126); ANION GAP 7 (5-19); ASPARTATE AMINO TRANSFERASE 18 U/L (14-36); BILIRUBIN,DIRECT 0.2 mg/dL (0.0-0.4); BILIRUBIN,TOTAL 0.3 mg/dL (0.2-1.3); BLOOD UREA NITROGEN 11 mg/dL (7-20); CALCIUM 9.2 mg/dL (8.4-10.2); CARBON DIOXIDE 25 mmol/L (22-30); CHLORIDE 109 mmol/L (98-107); CREATINE KINASE 88 U/L (30-135); GLUCOSE 92 mg/dL (75-110); POTASSIUM 3.9 mmol/L (3.6-5.0); SODIUM 140.7 mmol/L (137-145); TOTAL PROTEIN 7.3 g/dL (6.3-8.2)
[2019-06-02 11:00] LABS: CREATINE KINASE MB 0.37 ng/mL (<4.55)
[2019-06-02 11:01] LABS: TROPONIN I < 0.012 ng/mL
--- NOTE | 2019-06-02 11:27 | ER Document Report ---
ED Cardiac - General Chief Complaint: Chest Pain Stated Complaint: CHEST PAIN Time Seen by Provider: 06/02/19 09:51 Mode of Arrival: Ambulatory Notes: E Provider note: Patient is a 38-year-old female presented to the emergency department chief complaint of intermittent left-sided chest pain that radiates into her left shoulder and left arm. She also reports she gets shortness of breath and diaphoretic when the pain comes on. She reports the pain is intermittent, lasting only a few minutes each episode. She denies any nausea or vomiting, denies any cardiac history. MY HPI: Patient states left-sided chest pain started on Friday is intermittent in nature. Denying any trauma, increase or decrease in pain with deep inspiration or palpation. States it is sharp/tight in nature. Patient's denying any abdominal pain, dysuria. Patient is currently denying any pain at this time. Denying any shortness of breath or diaphoresis. Upon my examination the patient states she would like to leave the hospital stat ing "I do not have any pain anymore." Patient is denying any history of hypertension, hyperlipidemia, diabetes. Takes no daily medications. Patient does admit to every day smoking of cigarettes. TRAVEL OUTSIDE OF THE [place] IN LAST 30 DAYS: No - Related Data Allergies/Adverse Reactions: azithromycin [From Zithromax] Allergy (Verified 06/02/19 09:35) bee pollen Allergy (Verified 06/02/19 09:35) cephalexin [From Keflex] Allergy (Verified 06/02/19 09:35) Penicillins Allergy (Verified 06/02/19 09:35) tramadol [From Ultram] Allergy (Verified 06/02/19 09:35) Past Medical History - General Information source: Patient - Social History Smoking Status: Current Every Day Smoker Family History: None Patient has suicidal ideation: No Patient has homicidal ideation: No - Past Medical History Cardiac Medical History: Reports: Hx Hypercholesterolemia Renal/ Medical History: Denies: Hx Peritoneal Dialysis Past Surgical History: Reports: Hx Breast Surgery - lumpectomy, Hx Section, Hx Cholecystectomy, Hx Hysterectomy, Hx Orthopedic Surgery, Hx Tonsillectomy - Immunizations Hx Diphtheria, Pertussis, Tetanus Vaccination: Yes Review of Systems - Review of Systems Constitutional: denies: Fever EENT: No symptoms reported Cardiovascular: See HPI Respiratory: See HPI Gastrointestinal: No symptoms reported Genitourinary: No symptoms reported Female Genitourinary: No symptoms reported Musculoskeletal: No symptoms reported Skin: No symptoms reported Hematologic/Lymphatic: No symptoms reported Neurological/Psychological: No symptoms reported Physical Exam - Vital signs Vitals: Temp Pulse Resp BP Pulse Ox 98 F 93 20 130/91 H 99 06/02/19 09:45 06/02/19 09:45 06/02/19 09:45 06/02/19 09:45 06/02/19 09:45 - Notes Notes: GENERAL: Alert, interacts well. No acute distress. HEAD: Normocephalic, atraumatic. EYES: Pupils equal, round, and reactive to light. Extraocular movements intact. ENT: Oral mucosa moist, tongue midline. NECK: Full range of motion. Supple. Trachea midline. LUNGS: Clear to auscultation bilaterally, no wheezes, rales, or rhonchi. No respiratory distress. HEART: Regular rate and rhythm. No murmur Chest: No crepitus felt, no erythema ecchymosis noted anterior posterior chest wall. Pain left side of chest does not increase upon palpation or inspiration. ABDOMEN: Soft, non-tender. Non-distended. Bowel sounds present in all 4 qu adrants. EXTREMITIES: Moves all 4 extremities spontaneously. No edema, normal radial and dorsalis pedis pulses bilaterally. No cyanosis.Full range of motion left shoulder patient states rotation of left shoulder does not elicit pain. BACK: no cervical, thoracic, lumbar midline tenderness. No saddle anesthesia, normal distal neurovascular exam. NEUROLOGICAL: Alert and oriented x3. Normal speech. cranial nerves II through XII grossly intact PSYCH: Normal affect, normal mood. SKIN: Warm, dry, normal turgor. No rashes or lesions noted. Course - Re-evaluation Re-evalutation: 06/02/19 11:25 I discussed patient initial lab work with her. Patient's initial troponin is negative. EKG shows sinus rhythm 84, QTc 459, no ST segment elevations or depressions noted. I have discussed with patient my recommendation to have a delta troponin drawn. I also discussed repeating patient's EKG at time of delta troponin. Patient states she does not have any pain at this time. States she would like to leave the emergency department because her son is at home by himself. Patient is willing to sign AGAINST MEDICAL ADVICE paperwork. AGAINST MEDICAL ADVICE paperwork signed, witnessed by nursing staff, Edda. Discussed with patient's need to return to the emergency department immediately should her chest pain Resurface, she have any other symptoms. Discussed close follow-up with primary care provider. - Vital Signs Vital signs: Temp Pulse Resp BP Pulse Ox 98 F 93 20 130/91 H 99 06/02/19 09:45 06/02/19 09:45 06/02/19 09:45 06/02/19 09:45 06/02/19 09:45 - Laboratory Result Diagrams: 06/02/19 10:17 06/02/19 10:17 Laboratory results interpreted by me: 06/02/19 10:17 Chloride 109 H Discharge - Discharge Clinical Impression: Left against medical advice Chest pain Qualifiers: Chest pain type: unspecified Qualified Code(s): R07.9 - Chest pain, unspecified Condition: Fair Disposition: AGAINST MEDICAL ADVICE Instructions: Chest Pain of Unclear Cause ([facility]) Additional Instructions: As we discussed you are leaving the emergency department AGAINST MEDICAL ADVICE. Is my suggestion that you stay in the emergency department for repeat lab value called your troponin. It is also my suggestion that you follow-up with a the neuromedical center care provider and immediately return to the emergency room should you develop any chest pain or have any other symptoms. Phone numbers for primary care provider and cardiology will be provided in this packet. Referrals: BARBARA HURTADO MD [ACTIVE STAFF] - Follow up as needed RUPALI JO MD [ACTIVE STAFF] - Follow up as needed
== END 2019-06-02 11:35 | disposition left against medical advice (07) ==
LOC: ER 09:33
DX: R07.9 Chest pain, unspecified (principal); M25.512 Pain in left shoulder; M79.602 Pain in left arm; R06.02 Shortness of breath; R61 Generalized hyperhidrosis; I10 Essential (primary) hypertension; E78.5 Hyperlipidemia, unspecified; E11.9 Type 2 diabetes mellitus without complications; F17.210 Nicotine dependence, cigarettes, uncomplicated; Z88.3 Allergy status to other anti-infective agents; Z88.0 Allergy status to penicillin
CPT/HCPCS: 36415; 71046; 80053; 82550; 82553; 84484; 85025; 93005; 93010; 99285

== ENCOUNTER 2019-06-12 10:32 | Emergency (ER) | payer MEDICAID ==
[2019-06-12 10:42] VITALS: BP 119/76
--- NOTE | 2019-06-12 10:54 | ER Document Report ---
HPI - HPI Time Seen by Provider: 06/12/19 10:48 Pain Level: 4 Notes: Patient is a 38-year-old female with no significant past medical history who presents complaining of right elbow pain status post injury yesterday. Patient states that she was vacuuming when she slipped on the steps and landed on her right elbow. Patient states that she has not noticed any swelling, but has pain that originates that radiates distal and proximal from the elbow. Patient states that the pain is worse with pressure. She did take some Motrin today. She did not have any head injury or loss of consciousness. She has been able to eat and drink without difficulty. She is urinating normally. Denies any headache, fever, neck pain, changes in vision/speech/mentation/hearing, URI, sore throat, chest pain, palpitations, syncope, cough, shortness of breath, wheeze, dyspnea, abdominal pain, nausea/vomiting/diarrhea, urinary retention, dysuria, hematuria, loss of control of bowel or bladder, numbness/tingling, saddle anesthesia, muscle paralysis/weakness, or rash. - ROS Systems Reviewed and Negative: Yes All other systems reviewed and negative - REPRODUCTIVE Reproductive: DENIES: : Past Medical History - Social History Smoking Status: Current Every Day Smoker Family History: None - Past Medical History Cardiac Medical History: Reports: Hx Hypercholesterolemia Renal/ Medical History: Denies: Hx Peritoneal Dialysis Past Surgical History: Reports: Hx Breast Surgery - lumpectomy, Hx Section, Hx Cholecystectomy, Hx Hysterectomy, Hx Orthopedic Surgery, Hx Tonsillectomy - Immunizations Hx Diphtheria, Pertussis, Tetanus Vaccination: Yes Vertical Provider Document - CONSTITUTIONAL Agree With Documented VS: Yes Notes: PHYSICAL EXAMINATION: GENERAL: Well-appearing, well-nourished and in no acute distress. HEAD: Atraumatic, normocephalic. EYES: Pupils equal round and reactive to light, extraocular movements intact, sclera anicteric, conjunctiva are normal. NECK: Normal range of motion, supple without lymphadenopathy. No midline tenderness. LUNGS: Breath sounds clear to auscultation bilaterally and equal. No wheezes rales or rhonchi. HEART: Regular rate and rhythm without murmurs, rubs, gallops. ABDOMEN: Soft, nontender, nondistended abdomen. No guarding, no rebound. Normal bowel sounds present. No CVA tenderness bilaterally. No ecchymosis. Musculoskeletal: Rt elbow: No obvious erythema, ecchymosis, effusion, or deformity. FROM to passive/active. Strength 4+/5 due to pain. N/V intact distal. + tenderness to the olecranon to palpation. No tenderness to the proximal humerus, shoulder, mid/distal forearm, hand. Extremities: No cyanosis, clubbing, or edema b/l. Peripheral pulses 2+. Capillary refill less than 3 seconds. NEUROLOGICAL: Cranial nerves grossly intact. Normal speech, normal gait. Normal sensory, motor exams PSYCH: Normal mood, normal affect. SKIN: Warm, Dry, normal turgor, no rashes or lesions noted. - INFECTION CONTROL TRAVEL OUTSIDE OF THE [place] IN LAST 30 DAYS: No Course - Re-evaluation Re-evalutation: 06/12/19 11:48 Patient is an afebrile, well-hydrated, 38-year-old female who presents to the ED with Rt elbow pain which I suspect to be a contusion. Vitals are acceptable without any significant tachycardia, tachypnea, or hypoxia. PE is otherwise unremarkable for any neurovascular compromise, obvious tendon/ligament rupture, obvious fracture/dislocation, septic joint. X-ray was unremarkable for any acute pathology. Sling provided today. Patient is nontoxic-appearing. No other labs or imaging warranted at this time based on H&P. Conservative measures otherwise for symptoms. Recheck with your PCM in 3-5 days. Consider consult orthopedics. Return to the ED with any worsening/concerning symptoms otherwise as reviewed in discharge. Patient is in agreement. - Vital Signs Vital signs: Temp Pulse Resp BP Pulse Ox 98.0 F 79 16 119/76 97 06/12/19 10:40 06/12/19 10:40 06/12/19 10:40 06/12/19 10:40 06/12/19 10:40 Discharge - Discharge Clinical Impression: Right elbow pain Condition: Stable Disposition: HOME, SELF-CARE Additional Instructions: Rest, Ice, Compression, Elevation Use sling as directed Tylenol/ibuprofen as needed Light stretches daily Strength exercises as able Moist heat and massage may help F/u with your PCP in 3-5 days for a recheck Consider consult(s) with Orthopedics/physical therapy for ongoing/worsening symptoms Return to the ED with any worsening symptoms and/or development of fever, headache, chest pain, palpitations, syncope, shortness of breath, trouble breathing, abdominal pain, n/v/d, muscle weakness/paralysis, numbness/tingling, swelling, redness, or other worsening symptoms that are concerning to you. Prescriptions: Naproxen 500 mg PO BID #10 tablet Forms: Smoking Cessation Education Referrals: [facility] (MARY KATE) [Provider Group] - Follow up as needed
--- NOTE | 2019-06-12 11:39 | RADIOLOGY REPORT (SQ) ---
EXAM DESCRIPTION: ELBOW RIGHT OVER 2 VIEWS COMPLETED DATE/TIME: 06/12/2019 11:01 am REASON FOR STUDY: rt elbow pain s/p injury COMPARISON: None. NUMBER OF VIEWS: Four views. TECHNIQUE: AP, lateral, and both oblique radiographic images acquired of the right elbow. LIMITATIONS: None. FINDINGS: MINERALIZATION: Normal. BONES: No acute fracture or dislocation. No worrisome bone lesions. JOINT: No effusion. SOFT TISSUES: No soft tissue swelling. No foreign body. OTHER: No other significant finding. IMPRESSION: NEGATIVE STUDY OF THE RIGHT ELBOW. NO RADIOGRAPHIC EVIDENCE OF ACUTE INJURY. TECHNICAL DOCUMENTATION: JOB ID: [id number] [employer]- All Rights Reserved Reading location - IP/workstation name: [email or web address]
== END 2019-06-12 12:05 | disposition home or self-care (01) ==
LOC: ER 10:32
DX: M25.521 Pain in right elbow (principal); W10.9XXA Fall (on) (from) unspecified stairs and steps, initial encounter; F17.200 Nicotine dependence, unspecified, uncomplicated
CPT/HCPCS: 99283